=== PATIENT | male | born 1960 | race Caucasian/White ===

== ENCOUNTER → 2022-01-30 10:56 | Outpatient (BNVA) | payer OTHER, SELFPAY | PROVIDERS: Family Provider Family Medicine; PCP Family Medicine; Visit Provider Internal Medicine Cardiovascular Disease | DX: Z01.812 Encounter for preprocedural laboratory examination (principal); I25.10 Atherosclerotic heart disease of native coronary artery without angina pectoris; I38 Endocarditis, valve unspecified; I65.29 Occlusion and stenosis of unspecified carotid artery; F17.200 Nicotine dependence, unspecified, uncomplicated | CPT/HCPCS: 99204 ==

== ENCOUNTER → 2022-02-01 10:44 | Outpatient (BNVA) | payer OTHER, SELFPAY | PROVIDERS: Family Provider Family Medicine; PCP Family Medicine; Visit Provider Surgery | DX: K92.1 Melena (principal) | CPT/HCPCS: 87635 ==

== ENCOUNTER 2022-02-07 05:35 | Day surgery (SDC) | payer OTHER, SELFPAY ==
[2022-02-04 13:10] VITALS: BMI 15.7
[2022-02-07 06:03] VITALS: BP 122/88; PULSE 68; RESP 16; TEMP 36.1; O2SAT 100
[2022-02-07] MEDS: sodium chloride 0.9% 1,000 ML 30 ML IV (06:14)
--- NOTE | 2022-02-07 06:34 | W.PM.OPSUD ---
Surgery/Procedure H&P Update DATE OF PROCEDURE: February 07, 2022 DATE H&P PERFORMED: 01/14/22 CHANGES TO PREVIOUS DOCUMENTATION: none PREOP DIAGNOSIS: Occult blood positive in stool PRIMARY INDICATION FOR PROCEDURE: the same PLANNED PROCEDURE: Operation Date: 02/07/22 07:00 Proposed Procedures p Colonoscopy 40487/k92.1(Not Applicable) - Nicholas Almaguer MD
--- NOTE | 2022-02-07 06:42 | ANES.PREANE2 ---
Pre-Anesthetic Assessment Height/Weight: Height 2.01 m Weight 63.503 kg Temp Pulse Resp BP Pulse Ox 97 F L 68 16 122/88 100 02/07/22 06:03 02/07/22 06:03 02/07/22 06:03 02/07/22 06:03 02/07/22 06:03 Preop Diagnosis: Occult blood positive in stool Operation Date: 02/07/22 07:00 Proposed Procedures p Colonoscopy 51015/k92.1(Not Applicable) - Nicholas Almaguer MD Last intake: Intake Last Liquid Date 02/06/22 Last Liquid Time 23:30 Last Solid Date 02/05/22 Last Solid Time 21:00 Social Alcohol and Tobacco 3-4 cig per day pack(s) per day Airway Submandibular: within normal limits Cervical ROM: within normal limits Mallampati: Class III Dentition: false (upper plate) Pulmonary Chronic Obstructive Pulmonary Disease CV/HEM Coronary Artery Disease and Hypertension previous aneurysm repair, previous heart stents and CABG x4 in 2014 cleared by cardiology 01/29 for colonoscopy patient appears to have good fuctional capacity. None reported Hepatic None reported GI Gastroesophageal Reflux Disease Melena Metabolic Hyperlipidemia [facility] None reported Neuropsych None reported Anesthetic Plan ASA status: 3 Medications/Allergies Home Medications Medication Instructions Recorded Confirmed Last Taken Type allopurinol 100 mg tablet 300 mg PO DAILY 01/14/22 02/07/22 02/06/22 History amlodipine 10 mg tablet 10 mg PO DAILY 01/14/22 02/07/22 02/06/22 History aspirin 81 mg tablet,delayed 81 mg PO DAILY 01/14/22 02/04/22 02/03/22 History release (Adult Aspirin Regimen) carvedilol 25 mg tablet 25 mg PO BID 01/14/22 02/07/22 02/06/22 History clopidogrel 75 mg tablet 75 mg PO DAILY 01/14/22 02/07/22 02/02/22 History lisinopril 40 mg tablet 40 mg PO DAILY 01/14/22 02/07/22 02/06/22 History nitroglycerin 0.4 mg sublingual 0.4 mg SUBLINGUAL Q5M PRN 01/25/22 02/04/22 Unknown History tablet (Nitrostat) Allergies Allergy/AdvReac Type Severity Reaction Status Date / Time Bpgxyyf-UWI-YiQ Reductase Allergy Severe Unknown Verified 02/04/22 13:07 Inhibitor Current Medications Generic Name Dose Route Start Last Admin Trade Name Yuanq PRN Reason Stop Dose Admin Sodium Chloride 1,000 mls @ 30 mls/hr 02/07/22 05:45 02/07/22 06:14 Sodium Chloride 0.9% IV 02/08/22 05:44 30 mls/hr .Q24H DYLON Administration PFSH Anesthesia Medical History Abnormal liver function tests Aortic aneurysm CAD (coronary artery disease) Carotid stenosis GERD (gastroesophageal reflux disease) Gout Heart failure Heart valve disorder Hyperlipidemia Hypertension Statin intolerance Tobacco use disorder Vitamin D deficiency Surgical History History of bilateral hip replacements 2000, 2002 History of hip replacement History of inguinal hernia repair LEFT 1999 History of open heart surgery 2014 History of PTCA Hx of CABG x 4 vessels 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 Family History Brother CAD (coronary artery disease) unknown age of onset Sister CAD (coronary artery disease) unknown age of onset Diabetes Mother CAD (coronary artery disease) unknown age of onset Father Cancer Lung disease Family/Other Hypertension Grandmother Suicide Other Dementia Denies family history of Clotting disorder Chronic kidney disease (CKD) Anesthesia complication Bleeding disorder Stroke Social History Smoking and tobacco status: current some day smoker Alcohol intake: current Alcohol intake frequency: few times a week Alcohol type: beer Substance/Drug Use: never Lives independently: Yes Data Anesthesia Cardiac Studies: No Data to Display
[2022-02-07 07:17] VITALS: BP 106/74; PULSE 67; RESP 16; TEMP 36.5; O2SAT 100
[2022-02-07 07:28] VITALS: BP 99/60; PULSE 77; RESP 16; TEMP 36.2; O2SAT 97
== END 2022-02-07 09:08 | disposition home or self-care (01) ==
PROVIDERS: PCP Family Medicine; Visit Provider Surgery
PROC: 0DJD8ZZ Inspection of Lower Intestinal Tract, Via Natural or Artificial Opening Endoscopic (ICD-10-PCS; CPT 45378; principal; 2022-02-07 07:00)
DX: K92.1 Melena (principal); F17.210 Nicotine dependence, cigarettes, uncomplicated; K21.9 Gastro-esophageal reflux disease without esophagitis; I25.10 Atherosclerotic heart disease of native coronary artery without angina pectoris; Z95.1 Presence of aortocoronary bypass graft; Z95.5 Presence of coronary angioplasty implant and graft; E78.5 Hyperlipidemia, unspecified; I50.9 Heart failure, unspecified; I11.0 Hypertensive heart disease with heart failure; Z82.49 Family history of ischemic heart disease and other diseases of the circulatory system
CPT/HCPCS: 45378; J2704; J3490; J7030

== ENCOUNTER 2022-02-20 09:08 | Outpatient (CLI) | payer OTHER, SELFPAY ==
[2022-02-20] MEDS: iohexol 300 mg/mL 50 mL Btl PO (10:01)
--- NOTE | 2022-02-20 10:30 | CT_ITS ---
WS: [id number] CTA THORACIC AORTA WITH CONTRAST. HISTORY: Follow-up ascending aortic aneurysm repair. TECHNIQUE: CT imaging of the thorax is performed with and without contrast. After noncontrast imaging is performed, CT angiogram is performed during injection of Omnipaque 350; 95 mL IV.. Sagittal and c oronal reconstructions, sagittal and coronal MIP imaging is submitted. All CT scans at [facility] use at least one of these dose optimization techniques: automated exposure control; mA and/or kV adjustment per patient size (includes targeted exams where dose is matched to clinical indication); or iterative reconstruction. DLP: 1493.10 mGy.cm COMPARISON: None available. By history patient is status post ascending aortic aneurysm repair. Several surgical sutures are note d adjacent to the ascending thoracic aorta. Maximum transverse diameter of the ascending aorta is 4.0 cm. Aneurysm tapers normally through the ar ch. Descending aortic measurement at the level of the trachea is 2.5 cm. There is no periaortic hemat stephanie. No mediastinal hematoma. Scattered mild atherosclerotic plaque into the suprarenal aorta. Normal size pulmonary artery. There is a small amount of air in the pulmonary artery from the recent IV injection most likely. No filling defects in the pulmonary arteries of thrombus. Heart is normal s ize. Coronary artery calcifications are extensive. Near contiguous calcification noted in the [place] coronary arteries. Prior CABG. Mildly hyperexpanded lungs. Extensive paraseptal emphysema. No pulmonary mass or nodule. No adenopath y in the mediastinum or hilar regions. Mild stenosis involving the proximal LEFT subclavian artery. Very small hiatal hernia. Mild thickening of the gastroesophageal junction. Nonspecific and may be du e to underdistention. Mild hepatic steatosis. Blush-like area of enhancement within the central liver may be a small hepatic hemangioma. No adrenal mass. Visualized pancreas is negative. No osteoblastic or osteolytic bone disease. CT/CT angio chest [id number] IMPRESSION: 1. Very minimal aneurysmal dilatation of the ascending thoracic aorta with a m aximum diameter 4.0 cm. No prior studies for comparison are available. 2. Prior CABG with extensive [place] coronary artery calcified plaque. 3. Paraseptal emphysema. 4. Mild stenosis proximal LEFT subclavian artery.
--- NOTE | 2022-02-20 10:30 | CT_ITS ---
WS: [id number] CT ABDOMEN AND PELVIS WITH CONTRAST HISTORY: K62.5 - Hemorrhage of anus and rectum TECHNIQUE: Imaging performed of the abdomen and pelvis with IV contrast. Single phase imaging of the abdomen. Coronal and sagittal reformats are submitted. All CT scans at [facility] use at [address] one of these dose optimization techniques: automated exposure control; mA and/or kV adjustment per patient size (includes targeted exams where dose is matched to clinical indication); or iterative re construction. IV CONTRAST: Omnipaque 350; 95 mL IV. Oral contrast: Yes. DLP: 1493.10 mGy.cm COMPARISON: None available. Lower thorax: Lung bases are clear. Normal size heart. No pericardial effusion. Small hiatal hernia. Moderate thickening of the gastroesophageal junction. Liver/biliary system: Normal size liver. Very small low-attenuation nodule in the superior liver ce ures 4 mm. Too small to characterize. Normal enhancement of the portal vein. Gallbladder: Mildly contracted gallbladder. No adjacent inflammation. No bile duct dilatation. Pancreas: Normal size pancreas and pancreatic duct. No adjacent inflammation. Spleen: Normal size spleen. No mass or infarct. Adrenal glands: Normal. Right kidney: Normal size kidney. There are small nonobstructing calcifications which may be vascular calcifications. No ureteral dilatation. Left kidney: Normal size kidney. No obstruction or solid mass. Nonobstructing central calcifications. Aorta: Moderate atherosclerotic plaque throughout the aorta. Plaque at the proximal celiac axis. Less than 50% stenosis. There is additional soft plaque and calcified plaque involving the proximal SMA. There is at least 50% stenosis. Soft plaque at the origin of the LACHELLE. Heavy calcified plaque at the o rigin of the renal arteries. There is also a combination of soft plaque and calcified plaque. There m ay be significant stenosis. Lymphadenopathy: None. Free fluid: None. GI tract: Circumferential thickening at the GE junction. No small bowel obstruction. There is an intu ssusception noted involving the small bowel in the LEFT abdomen. No obstruction evident. By CT no cristo d point mass identified. There is diffuse fecal retention. There is an area of wall thickening and mu cosal thickening involving the cecum and ascending colon. No adjacent lymph nodes. Normal caliber chavo cending colon. The appendix is not definitely visualized. Abdominal wall: Fat containing umbilical hernia. Pelvis: Pelvis is obscured by artifact secondary to the bilateral hip prostheses. Urinary bladder is well distended. No ascites or adenopathy identified. Extensive calcifications continue into the iliac arteries bilaterally. Bones: Advanced degenerative disc disease at L5-S1. No osteoblastic or osteolytic bone disease. Bilat eral arthroplasties involving the hips. CT/CT abdomen pelvis w con* [id number] IMPRESSION: 1. Moderate circumferential mucosal thickening at the GE junction. More extens evelin than typically seen with gastritis. Consider endoscopy for further evaluati on to exclude neoplasm. 2. Areas of stenoses involving the renal arteries and the SMA need further wendy luation. Consider CT angiogram of the aorta with attention to the renal arterie s and SMA. Atherosclerotic plaque continues into the iliac arteries bilaterally . 3. Ileoileal intussusception in the LEFT abdomen with no obstruction. This may be transient. 4. Focal luminal narrowing with mucosal thickening involving the cecum and asc ending colon. May be inflammatory, no discrete mass identified. This area shoul d be further evaluated by colonoscopy if that has not already been performed.
[2022-02-20 11:13] LABS: Blood Urea Nitrogen 11 mg/dL (8-23); Glomerular Filtration Rate 61.1 mL/min (90-130)
[2022-02-20] MEDS: iohexol 350 mg/mL 100 mL Btl IV (11:13)
== END 2022-02-20 09:09 | disposition home or self-care (01) ==
LOC: RAD 09:10
PROVIDERS: Internal Medicine Cardiovascular Disease; PCP Family Medicine; Visit Provider Surgery
DX: Z01.812 Encounter for preprocedural laboratory examination (principal); K62.5 Hemorrhage of anus and rectum; Z95.1 Presence of aortocoronary bypass graft; J43.8 Other emphysema
CPT/HCPCS: 71275; 74177; 82565; 84520

== ENCOUNTER → 2022-02-21 13:45 | Outpatient (BNVA) | payer OTHER, SELFPAY | PROVIDERS: PCP Family Medicine; Visit Provider Surgery | DX: R10.32 Left lower quadrant pain (principal) ==

== ENCOUNTER → 2022-03-20 15:30 | Outpatient (BNVA) | payer OTHER, SELFPAY | PROVIDERS: PCP Family Medicine; Visit Provider Surgery | DX: Z09 Encounter for follow-up examination after completed treatment for conditions other than malignant neoplasm (principal); K21.9 Gastro-esophageal reflux disease without esophagitis; R19.5 Other fecal abnormalities; R93.3 Abnormal findings on diagnostic imaging of other parts of digestive tract; F17.210 Nicotine dependence, cigarettes, uncomplicated | CPT/HCPCS: 99213 ==

== ENCOUNTER 2022-03-29 05:59 | Day surgery (SDC) | payer OTHER, SELFPAY ==
[2022-03-27 13:10] VITALS: BMI 23.5
[2022-03-29 06:21] VITALS: BP 128/62; PULSE 64; RESP 18; TEMP 37; O2SAT 98
[2022-03-29] MEDS: sodium chloride 0.9% 1,000 ML 30 ML IV (06:33)
--- NOTE | 2022-03-29 06:33 | W.PM.OPSUD ---
Surgery/Procedure H&P Update DATE OF PROCEDURE: March 29, 2022 DATE H&P PERFORMED: 03/20/22 H&P UPDATE INFORMATION: I have reviewed H&P completed within last 30 days, I have examined patient prior to procedure and No changes to prior documentation PREOP DIAGNOSIS: Abnormal CT scan of the esophagus PRIMARY INDICATION FOR PROCEDURE: The same PLANNED PROCEDURE: Operation Date: 03/29/22 07:30 Proposed Procedures p EGD 95339/K21.9(Not Applicable) - Nicholas Almaguer MD
--- NOTE | 2022-03-29 06:49 | P.ANESUD_ITS ---
Pre-Anesthetic Update Pre-Anesthetic Assessment: Date of Surgery/Procedure: 03/29/22 Preop [place] gnosis: Abnormal CT scan of the esophagus Proposed Procedure: Operation Date: 03/29/22 07:30 Proposed Procedures p EGD 80959/K21.9(Not Applicable) - Nicholas Almaguer MD Last Intake: Intake Last Liquid Date 03/28/22 Last Liquid Time 21:00 Last Solid Date 03/28/22 Last Solid Time 19:00 Vitals: Temperature 98.6 F 03/29/22 06:21 Pulse Rate 64 03/29/22 06:21 Respiratory Rate 18 03/29/22 06:21 Blood Pressure 128/62 03/29/22 06:21 Blood Pressure Macrina n 84 03/29/22 06:21 Pulse Oximetry 98 03/29/22 06:21 Oxygen Delivery Me thod 03/29/22 06:21 Cardiac Studies: No Data to Display Anesthesia Procedures Other Information: patient seen for colonosocopy 02/05 denies any changes in health since then.
[2022-03-29 07:40] VITALS: BP 105/53; PULSE 62; RESP 18; TEMP 36.5; O2SAT 97
[2022-03-29 07:50] VITALS: BP 115/78; PULSE 68; RESP 18; O2SAT 95
--- NOTE | 2022-03-29 13:16 | ANE.PACU2 ---
Inpatient post-anesthesia follow up: Airway intact: Yes Vital signs: Temperature 97.7 F Pulse Rate 68 Respiratory Rate 18 Blood Pressure 115/78 Pulse Oximetry 95 Oxygen Delivery Me thod Room Air Oxygen Flow Rate 2 Fraction of Inspir ed Oxygen Hydration adequate: Yes Nausea and vomiting: No Pain level: 1 Mental status: Baseline
== END 2022-03-29 08:10 | disposition home or self-care (01) ==
PROVIDERS: PCP Family Medicine; Visit Provider Surgery
PROC: 0DJ08ZZ Inspection of Upper Intestinal Tract, Via Natural or Artificial Opening Endoscopic (ICD-10-PCS; CPT 43235; principal; 2022-03-29 07:30)
DX: R93.3 Abnormal findings on diagnostic imaging of other parts of digestive tract (principal); K44.9 Diaphragmatic hernia without obstruction or gangrene; K29.70 Gastritis, unspecified, without bleeding; Z79.82 Long term (current) use of aspirin; I25.10 Atherosclerotic heart disease of native coronary artery without angina pectoris; I11.0 Hypertensive heart disease with heart failure; I50.9 Heart failure, unspecified; E55.9 Vitamin D deficiency, unspecified; E78.5 Hyperlipidemia, unspecified; F17.200 Nicotine dependence, unspecified, uncomplicated
CPT/HCPCS: 43235; J7030

== ENCOUNTER → 2022-04-08 09:52 | Outpatient (BNVA) | payer OTHER, SELFPAY | PROVIDERS: PCP Family Medicine; Visit Provider Internal Medicine Cardiovascular Disease | DX: Z53.9 Procedure and treatment not carried out, unspecified reason (principal) ==

== ENCOUNTER 2022-04-26 09:47 | Outpatient (CLI) | payer OTHER, SELFPAY ==
--- NOTE | 2022-04-26 10:03 | FL_ITS ---
WS: [id number] Exam: FL barium enema w air* [id number] Date/Time of Exam: 04/26/2022 10:09 AM Reason For Exam: OCCULT BLOOD IN STOOLS Preliminary abdominal survey shows bilateral total hip replacements. The colon fills to the cecum. Barium could not be refluxed into the terminal ileum. There was no evid ence of colonic mass or constricting lesion. There is some retained particulate stool debris in the c olon which would preclude detection of a small polyp or mucosal lesion. This is mainly in the transve rse and left colon. The haustral pattern is well maintained. The colon is not displaced. A single div erticulum is seen in the lower descending colon. FL/FL barium enema w air* [id number] IMPRESSION: 1. No sign of the colonic mass or constricting lesion. 2. Small amount of retained particulate fecal debris is noted in the left colon and transverse colon which would preclude detection of a small polyp or mucosa l lesion. Single left colon diverticulum.
== END 2022-04-26 09:48 | disposition home or self-care (01) ==
PROVIDERS: PCP Family Medicine; Visit Provider Surgery
DX: R19.5 Other fecal abnormalities (principal); K57.30 Diverticulosis of large intestine without perforation or abscess without bleeding
CPT/HCPCS: 74280

== ENCOUNTER 2022-05-01 10:09 | Outpatient (CLI) | payer OTHER, SELFPAY ==
--- NOTE | 2022-05-01 10:30 | CT_ITS ---
WS: [id number] CT ANGIOGRAPHY abdomen and pelvis. HISTORY: K62.5 - Hemorrhage of anus and rectum TECHNIQUE: CT angiogram is performed during IV injection. Reformation images reviewed. All CT scans a [employer] use at least one of these dose optimization techniques: automated exposure contro l; mA and/or kV adjustment per patient size (includes targeted exams where dose is matched to clinica l indication); or iterative reconstruction. CONTRAST: Omnipaque 350; 95 mL IV. DLP: 819.48 mGy.cm COMPARISON: 02/20/2022 No pulmonary nodule at the lung bases. Heart size is mildly enlarged. Small hiatal hernia. Liver and spleen and pancreas are normal. No adrenal mass. No inflammation adjacent to the gallbladde r. Mild perinephric stranding of each kidney. No obstruction. No ascites or adenopathy. Abdominal aorta: Mild diffuse atherosclerotic plaque throughout the aorta. Calcified plaque and intim al thickening. No aneurysm. Mild scattered plaque involving the proximal celiac axis. No obstruction. More focal plaque in the proximal SMA. There is intimal thickening and plaque causing a mild proxima l stenosis. Moderate calcification of the origin of the renal arteries. Accessory renal artery on the LEFT has at least moderate stenosis at the origin. LACHELLE is still patent. Calcification continues into the common iliac arteries. 50-60% stenosis LEFT mid to distal common iliac artery. Moderate atherosc lerotic plaque continues into the internal and external iliac arteries. Focal areas of moderate steno sis bilateral superficial femoral arteries and deep profunda. Nondistended stomach. No wall thickening identified today. No small bowel obstruction. The appendix i s normal size and contains calcification. No focal areas of abnormal enhancement noted within the col on. No active extravasation. There is mild thickening involving the rectal soft tissues. Urinary blad mimi is well distended and contains artifact from the patient's bilateral hip prostheses. Bilateral hip prostheses. Moderate degenerative disc disease L5-S1. CT/CT angio abdomen pelvis [id number] IMPRESSION: 1. Mild circumferential rectal wall thickening. Recommend colonoscopy. 2. No enhancing lesions or active extravasation. 3. Atherosclerotic plaque throughout the abdominal aorta with no aneurysm. 4. Multifocal areas of jxhw-on-slttljjd stenosis involving the celiac axis, SM A, renal arteries, iliac arteries, bilateral superficial femoral and proximal p rofunda.
[2022-05-01 10:52] LABS: Blood Urea Nitrogen 11 mg/dL (8-23); Glomerular Filtration Rate 75.2 mL/min (90-130)
[2022-05-01] MEDS: iohexol 350 mg/mL 100 mL Btl IV (10:52)
== END 2022-05-01 10:10 | disposition home or self-care (01) ==
LOC: RAD 10:09
PROVIDERS: PCP Family Medicine; Visit Provider Surgery
DX: K62.5 Hemorrhage of anus and rectum (principal); I70.1 Atherosclerosis of renal artery
CPT/HCPCS: 74174; 82565; 84520; 99212; 99213

== ENCOUNTER 2024-05-31 16:30 | Emergency (ER) | payer OTHER, MEDICARE, SELFPAY ==
[2024-05-31 16:35] VITALS: BP 147/68; PULSE 64; RESP 18; TEMP 36.7; O2SAT 96; BMI 25.0
--- NOTE | 2024-05-31 16:41 | ECG_ITS ---
[facility] Test Date: 2024-05-31 Pat Name: Syed Maria Department: Room: Gender: Male Sports Journalist: : 1960 Requested By: John Hines Order Number: [id number] Conor MD: Darrel Doty M.D. Measurements Intervals [place] Rate: 58 P: -52 DC: 109 QRS: 55 QRSD: 138 T: 54 QT: 407 QTc: 402 Interpretive Statements SINUS BRADYCARDIA WITH SHORT DC INTERVAL RIGHT BUNDLE BRANCH BLOCK [120+ ms QRS DURATION, UPRIGHT V1, 40+ ms S IN I/aVL/V4/V5/V6] INTERPRETATION BASED ON A DEFAULT AGE OF 40 YEARS No previous ECG available for comparison Electronically Signed On 06-01-2024 21:34:14 CDT by Darrel Doty M.D. [id number] f
[2024-05-31 17:33] VITALS: BP 146/64; PULSE 59; RESP 16; O2SAT 98
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
[2024-05-31 18:00] VITALS: PULSE 64; O2SAT 99
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
[2024-05-31 19:03] VITALS: BP 129/62; PULSE 66; RESP 16; O2SAT 97
== END 2024-05-31 19:04 | disposition home or self-care (01) ==
PROVIDERS: Emergency Provider Physician Assistant; PCP Family Medicine
DX: S13.9XXA Sprain of joints and ligaments of unspecified parts of neck, initial encounter (principal); S61.412A Laceration without foreign body of left hand, initial encounter; S20.211A Contusion of right front wall of thorax, initial encounter; Z79.02 Long term (current) use of antithrombotics/antiplatelets; Z79.82 Long term (current) use of aspirin; Z72.0 Tobacco use; E78.5 Hyperlipidemia, unspecified; I10 Essential (primary) hypertension; I25.10 Atherosclerotic heart disease of native coronary artery without angina pectoris; Z95.1 Presence of aortocoronary bypass graft; V89.2XXA Person injured in unspecified motor-vehicle accident, traffic, initial encounter
CPT/HCPCS: 70450; 71250; 72125; 74176; 93005; 99284

== ENCOUNTER 2024-12-18 09:52 | Inpatient (IN) | payer MEDICARE, SELFPAY ==
[2024-12-18] VITALS (28 sets, daily range): BP systolic 99–143; BP diastolic 29–68; PULSE 70–83; RESP 16–20; TEMP 36.4; O2SAT 90–97
--- NOTE | 2024-12-18 09:59 | XRR_ITS ---
PROCEDURE INFORMATION: Exam: XR Right Shoulder Exam date and time: 12/18/2024 10:05 AM Age: 64 years old Clinical indication: Pain; Shoulder; Right; Additional info: Shoulder pain TECHNIQUE: Imaging protocol: Radiologic exam of the right shoulder. Views: 2 or more views. COMPARISON: [place] [id number] 05/31/2024 5:56 PM FINDINGS: Bones/joints: There is a fracture noted of the humeral head and neck. Internal external rotation views are the same. Glenohumeral alignment is intact. Minimal AC joint spurring. Soft tissues: Normal. XR/XR shoulder RT min 2V* [id number] IMPRESSION: Humeral head fracture.
--- NOTE | 2024-12-18 09:59 | CTR_ITS ---
PROCEDURE INFORMATION: Exam: CT Head Without Contrast Exam date and time: 12/18/2024 10:03 AM Age: 64 years old Clinical indication: Stroke-like symptoms; Altered mental status/memory loss; Additional info: Possible stroke TECHNIQUE: Imaging protocol: Computed tomography of the head without contrast. Radiation optimization: All CT scans at this facility use at least one of these dose optimization techniques: automated exposure control; mA and/or kV adjustment per patient size (includes targeted exams where dose is matched to clinical indication); or iterative reconstruction. Other technique: STROKE PROTOCOL was implemented. 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 No intracranial hemorrhage. No midline shift. Stable atrophy since the previous examination. Cerebral ventricles: No ventriculomegaly. Paranasal sinuses: Visualized sinuses are unremarkable. No fluid levels. Mastoid air cells: Visualized mastoid air cells are well aerated. Bones: Unremarkable. No acute fracture. Soft tissues: Unremarkable. CT/CT head wo con* [id number] IMPRESSION: No acute abnormality. 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 ASSESSMENT: ASPECTS ([place] Stroke Program Early CT Score) is 10.
--- NOTE | 2024-12-18 10:00 | ECG_ITS ---
[facility] Pat Name: Syed Maria Department: Room: Gender: Male Department Of Sociology Chair: : [id number] Requested By: Jessie Bailey Order Number: [id number] Perdomo MD: Wilfrid Arellano M.D. Measurements Intervals [place] Rate: 63 P: 0 NH: 0 QRS: 71 QRSD: 145 T: 70 QT: 439 QTc: 450 Interpretive Statements SINUS RHYTHM WITH SINUS ARRHYTHMIA RIGHT BUNDLE BRANCH BLOCK [120+ ms QRS DURATION, UPRIGHT V1, 40+ ms S IN I/aVL/V4/V5/V6] Compared to ECG 05/31/2024 16:41:20 Sinus bradycardia no longer present Short NH interval no longer present Electronically Signed On 12-18-2024 13:15:56 [employer] SALES REPRESENTATIVE by Wilfrid Arellano M.D. [email or web address]
--- NOTE | 2024-12-18 10:00 | XRR_ITS ---
PROCEDURE INFORMATION: Exam: XR Chest Exam date and time: 12/18/2024 10:07 AM Age: 64 years old Clinical indication: Other: Weakness TECHNIQUE: Imaging protocol: Radiologic exam of the chest. Views: 1 view. COMPARISON: [place] [id number] 05/31/2024 5:56 PM FINDINGS: Lungs: Unremarkable. No consolidation. Pleural spaces: Unremarkable. No pleural effusion. No pneumothorax. Heart/Mediastinum: Unremarkable. No cardiomegaly. Bones/joints: Sternal sutures. Fracture of unknown age involving the right humeral head. This is confirmed by shoulder x-ray performed today. XR/XR chest 1V portable [id number] IMPRESSION: 1. The lungs are clear. 2. There is a shoulder fracture. Is there history of trauma?
--- NOTE | 2024-12-18 10:10 | ED_ITS ---
HPI - Weakness 2 General: Chief complaint: Weakness Stated complaint: right side weakness Time Seen by Provider: 12/18/24 09:53 History of Present Illness: 64-year-old man with a history of epps ry artery disease, gout, GERD, hypertension, tobacco use, hyperlipidemia and carotid stenosis who presents to the emergency room with some confusion and possible right sided weakness. He has a bruise on his right shoulder and pain with movement. He says he does not remember having a fall. He has some difficulty raising his right leg but that seems to be from pain more than from weakness. No facial droop. No slurred speech. He does seem slightly confused at times but mainly answers questions appropriately. He knows his birthday. He tells me that someone from his work called the ambulance. Possibly because he did not show up. Review of Systems 2 Narrative: Constitutional symptoms: Negative except as documented in HPI. Skin symptoms: Negative except as documented in HPI. Eye symptoms: Negative except as documented in HPI. ENMT symptoms: Negative except as documented in HPI. Respiratory symptoms: Negative except as documented in HPI. Cardiovascular symptoms: Negative except as documented in HPI. Gastrointestinal symptoms: Negative except as documented in HPI. Genitourinary symptoms: Negative except as documented in HPI. Musculoskeletal symptoms: Negative except as documented in HPI. Neurologic symptoms: Negative except as documented in HPI. Psychiatric symptoms: Negative except as documented in HPI. Endocrine symptoms: Negative except as documented in HPI. 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 History of PTCA Family History Brother CAD (coronary artery disease) unknown age of onset Sister CAD (coronary artery disease) unknown age of onset Diabetes Mother CAD (coronary artery disease) unknown age of onset Father Cancer Lung disease Family/Other Hypertension Grandmother Suicide Other Dementia Denies family history of Clotting disorder Chronic kidney disease (CKD) Anesthesia complication Bleeding disorder Stroke Social History Smoking and tobacco/nicotine status: current every day tobacco/nicotine user Alcohol intake: current Alcohol intake frequency: few times a week Alcohol type: beer Substance/Drug Use: never Lives independently: Yes Physical Exam 2 Narrative: EXAM NARRATIVE: General: Alert, no acute distress. Skin: Warm, dry. Head: Normocephalic, atraumatic. Neck: Supple, trachea midline. Eye: Extraocular movements are intact. Ears, nose, mouth and throat: mucosa moist. Cardiovascular: Regular, Normal peripheral perfusion. Respiratory: Lungs are clear to auscultation, respirations are non-labored, breath sounds are equal, Symmetrical chest wall expansion. Gastrointestinal: Soft, Nontender, Non distended Musculoskeletal: Normal ROM, no deformity. Neurological: No obvious focal deficits. His right leg does seem a little weaker than the left but it seems more secondary to pain. Right arm he will not move and he has a large bruise over the shoulder. Possible deformity.. Psychiatric: Cooperative, odd affect Course 2 Vital Signs: Vital signs: Vital Signs Temperature 97.6 F 12/18/24 09:55 Pulse Rate 75 12/18/24 10:22 Respiratory Rate 18 12/18/24 11:29 Blood Pressure 143/52 12/18/24 10:22 Pulse Oximetry 95 12/18/24 10:22 Oxygen Delivery Me thod Room Air 12/18/24 10:22 MDM - Weakness Medical Decision Making Medical decision making: Differential diagnosis for patient with focal neurologic deficit(s) includes but not limited to and based on the above HPI, review of systems and physical exam: ischemic stroke, hemorrhagic stroke and embolic stroke secondary to atrial fibrillation), TIA, Neri's palsey, metabolic encephalopathy with previous stroke. Orders placed to evaluate differential diagnosis based on the above differential, HPI and physical exam CT head: Small lacunar infarcts. No acute intracranial process. no intracranial hemorrhage, no evidence of infarct. no evidence of acute fracture.This was reviewed and interpreted by myself the ER physician. Chest x-ray: Right proximal humerus fracture. No acute process. No infiltrate. No pneumothorax. This was reviewed and interpreted by myself the emergency room physician. I also reviewed the radiology report. X-ray of the right shoulder: Proximal right humerus fracture. This was reviewed and interpreted by myself the emergency room physician. I also reviewed the radiology report. X-ray of the right hip and pelvis: Bilateral hip prostheses. No obvious pelvic fractures. This was reviewed and interpreted by myself the emergency room physician. I also reviewed the radiology report. Lab Review: Laboratory results were reviewed and interpreted by myself the emergency room physician. Mild leukocytosis. Hemoglobin is 10.6. No comparison labs. No renal failure. However he does have a very low sodium at 123. This might very well explain his symptoms at this time. I reviewed the patient's medical record. Reexamination: Patient still remains slightly confused and odd affect. He still says he thinks he is okay. Friend who is in the room says he is not acting like himself at all. We discussed that this likely is due to his low sodium. I asked him about his alcohol use. He says he drinks beer. He says less than a 12 pack a day but cannot tell me how much exactly. This may be the cause of his hyponatremia. Also he is on lisinopril but no other diuretics. Consultation: I spoke with Dr. Johnson who is on-call for orthopedics. He recommends sling and outpatient follow-up. This would likely be in a couple of weeks. Consultation: I spoke with Dr. Motley who is on-call for the hospitalist service who agrees to admission. Assessment and plan: Hyponatremia Encephalopathy Fall Shoulder fracture ?Normal saline bolus, morphine and Zofran in the emergency room. Sling placed. -I discussed the patient with the hospitalist on-call who is admitting the patient. - Discussed findings and plan with patient. Answered any questions. - All laboratory values were reviewed and interpreted personally by myself, the ER physician - All imaging was reviewed and interpreted personally by myself, the ER physician. - Evaluation and treatment of this problem were appropriate in the emergency setting Lab Data 12/18/24 10:20 12/18/24 10:[address] 12/18/24 09:59 IMPRESSION: No acute abnormality. 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 ASSESSMENT: ASPECTS (Kimi Stroke Program Early CT Score) is 10. ADDENDUM: 12/18/24 1018 THIS REPORT CONTAINS FINDINGS THAT MAY BE CRITICAL TO PATIENT CARE. The findings were verbally communicated by me to HALI PAUL at 10:16 AM DISTRICT LOSS PREVENTION MANAGER on 12/18/2024. The findings were acknowledged and understood. Shoulder X-Ray 12/18/24 09:59 IMPRESSION: Humeral head fracture. Chest X-Ray 12/18/24 10:00 IMPRESSION: 1. The lungs are clear. 2. There is a shoulder fracture. Is there history of trauma? Hip/Pelvis X-Ray 12/18/24 10:18 IMPRESSION: No acute findings. Pelvis X-Ray 12/18/24 11:33 IMPRESSION: Single views of the hips demonstrate bilateral hip replacements in good alignment. Laboratory Results WBC 13.15 10^3/uL (3.29-11.43) H 12/18/24 10:20 RBC 3.10 10^6/uL (3.85-5.65) L 12/18/24 10:20 Hgb 10.60 g/dL (11.27-16.99) L 12/18/24 10:20 Hct 30.2 % (37-53) L 12/18/24 10:20 MCV 97.4 fl (82-101) 12/18/24 10:20 MCH 34.2 pg (27-33) H 12/18/24 10:20 MCHC 35.1 g/dL (30-55) 12/18/24 10:20 RDW 12.2 % (12.1-15.1) 12/18/24 10:20 Plt Count 92 10^3/cmm (157-399) L 12/18/24 10:20 MPV 10.5 fL (7.4-10.4) H 12/18/24 10:20 Neut % (Auto) 88.3 % 12/18/24 10:20 Lymph % (Auto) 5.4 % 12/18/24 10:20 Whitman % (Auto) 4.2 % 12/18/24 10:20 Eos % (Auto) 0.2 % 12/18/24 10:20 Baso % (Auto) 0.2 % 12/18/24 10:20 Neut # (Auto) 11.62 10^3/uL (1.8-7.7) H 12/18/24 10:20 Lymph # (Auto) 0.7 10^3/uL (0.8-4.8) L 12/18/24 10:20 Whitman # (Auto) 0.6 10^3/uL (0.2-0.9) 12/18/24 10:20 Eos # (Auto) 0.0 10^3/uL (0.0-0.8) 12/18/24 10:20 Baso # (Auto) 0.0 10^3/uL (0.0-0.1) 12/18/24 10:20 Nucleated RBC % (auto) 0 % 12/18/24 10:20 Nucleated RBCs # 0.0 /100WBC 12/18/24 10:20 Sodium 123 mmol/L (136-145) L 12/18/24 10:20 Potassium 3.4 mmol/L (3.5-5.1) L 12/18/24 10:20 Chloride 89 mmol/L (98-107) L 12/18/24 10:20 Carbon Dioxide 18 mmol/L (22-29) L 12/18/24 10:20 Anion Gap 19.4 (5-19) H 12/18/24 10:20 BUN 15 mg/dL (8-23) 12/18/24 10:20 Creatinine 1.1 mg/dL (0.7-1.2) 12/18/24 10:20 GFR Calculation 67.0 mL/min (90-130) L 12/18/24 10:20 Glucose 137 mg/dL (65-115) H 12/18/24 10:20 POC Glucose 154 mg/dL (70-110) H 12/18/24 10:13 Calculated Osmolality 259 mOsm/kg (285-295) L 12/18/24 10:20 Lactic Acid 1.2 mmol/L (0.5-2.2) 12/18/24 10:20 Calcium 8.9 mg/dL (8.5-10.5) 12/18/24 10:20 Total Bilirubin 0.4 mg/dL (0.15-1.2) 12/18/24 10:20 AST 41 U/L (0-40) H 12/18/24 10:20 ALT 18 U/L (0-41) 12/18/24 10:20 Alkaline Phosphatase 83 U/L (40-130) 12/18/24 10:20 Troponin T Baseline 17 ng/L (0-15) H 12/18/24 10:20 C-Reactive Protein 5.1 mg/L (0.0-4.9) H 12/18/24 10:20 Total Protein 7.2 g/dL (6.6-8.7) 12/18/24 10:20 Albumin 4.0 g/dL (3.5-5.2) 12/18/24 10:20 Globulin 3.2 g/dL (1.3-4.6) 12/18/24 10:20 Ethyl Alcohol < 10 mg/dL (0-10) 12/18/24 10:20 All radiology interpretation(s) finalized by discharge Discharge Plan Discharge Patient Disposition: Admitted As Inpatient Clinical Impression: Acute hyponatremia, Fall, Acute metabolic encephalopathy, Proximal humerus fracture Condition: Stable Coding Level of Care Code 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 [employer] Home Medications Medication Instructions Recorded Confirmed amlodipine 10 mg tablet 10 mg PO DAILY 01/14/22 05/04/22 aspirin 81 mg tablet,delayed 81 mg PO DAILY 01/14/22 05/04/22 release (Adult Aspirin Regimen) carvedilol 25 mg tablet 25 mg PO BID 01/14/22 05/04/22 clopidogrel 75 mg tablet 75 mg PO DAILY 01/14/22 05/04/22 lisinopril 40 mg tablet 40 mg PO DAILY 01/14/22 05/04/22 nitroglycerin 0.4 mg sublingual 0.4 mg sublingual Q5M PRN Chest 01/25/22 05/04/22 tablet (Nitrostat) Pain allopurinol 300 mg tablet 300 mg PO DAILY 03/27/22 05/04/22 multivitamin 1 tab PO DAILY 03/27/22 05/04/22 Previous Rx's Medication Instructions Recorded pantoprazole 40 mg tablet,delayed 40 mg PO DAILY 30 days #30 tabs 03/29/22 release (Protonix) Allergies Allergy/AdvReac Type Severity Reaction Status Date / Time [id number] Reductase Allergy Severe Unknown Verified 05/31/24 16:40 Inhibitor allopurinol Allergy ALGY-Rash Verified 05/31/24 16:41
--- NOTE | 2024-12-18 10:18 | XRR_ITS ---
PROCEDURE INFORMATION: Exam: XR Right Hip Exam date and time: 12/18/2024 10:37 AM Age: 64 years old Clinical indication: Injury or trauma; Fall; Blunt trauma (contusions or hematomas); Right; Prior surgery; Surgery date: 6+ months; Surgery type: Total hip replacement; Additional info: Hip pain TECHNIQUE: Imaging protocol: Radiologic exam of the right hip. Views: 1 view hip with pelvis when performed. COMPARISON: [place] [id number] 05/31/2024 5:56 PM FINDINGS: Bones/joints: Total hip replacement in good alignment. Soft tissues: Unremarkable. Vasculature: Vascular calcifications. XR/XR hip RT 2-3V wo/w pel* [id number] IMPRESSION: No acute findings.
[2024-12-18 10:27] LABS: Glucose Point of Care 154 mg/dL (70-110)
[2024-12-18 11:06] LABS: Basophils % 0.2 %; Eosinophils % 0.2 %; Hematocrit 30.2 % (37-53); Lymphocytes # 0.7 10^3/uL (0.8-4.8); Lymphocytes % 5.4 %; Mean Corpuscular HGB Conc 35.1 g/dL (30-55); Mean Corpuscular Hemoglobin 34.2 pg (27-33); Mean Corpuscular Volume 97.4 fl (82-101); Mean Platelet Volume 10.5 fL (7.4-10.4); Monocytes # 0.6 10^3/uL (0.2-0.9); Monocytes % 4.2 %; Neutrophils # 11.62 10^3/uL (1.8-7.7); Neutrophils % 88.3 %; Nucleated Red Blood Cells % 0 %; Platelet Count 92 10^3/cmm (157-399); Red Cell Distribution Width 12.2 % (12.1-15.1); White Blood Count 13.15 10^3/uL (3.29-11.43)
[2024-12-18 11:20] LABS: Troponin(5th) Baseline 17 ng/L (0-15)
[2024-12-18 11:23] LABS: Lactic Sepsis W/Reflex 1.2 mmol/L (0.5-2.2)
[2024-12-18] MEDS: HYDROmorphone 1 mg/mL INJ 1 mL IVP ×2 (11:29→15:34)
[2024-12-18] MEDS: ondansetron 2 mg/ML SDV 2 mL 4 MG IVP (11:29)
--- NOTE | 2024-12-18 11:33 | XRR_ITS ---
PROCEDURE INFORMATION: Exam: XR Pelvis Exam date and time: 12/18/2024 11:34 AM Age: 64 years old Clinical indication: Hip pain; Right hip; Prior surgery; Surgery date: 6+ months; Surgery type: Bilateral hips; Additional info: RT hip pain; HX RT hip arthroplasty TECHNIQUE: Imaging protocol: Radiologic exam of the pelvis. Views: 1 or 2 view. COMPARISON: CR (PELVIS, ) 12/18/2024 10:37 AM FINDINGS: Bones/joints: Bilateral hip replacements are in good alignment. No acute fracture. Soft tissues: Unremarkable. Vasculature: Extensive vascular calcifications. Other findings: Both views are AP views without any frog-leg lateral view. XR/XR pelvis 1-2V* [id number] IMPRESSION: Single views of the hips demonstrate bilateral hip replacements in good alignment.
--- NOTE | 2024-12-18 12:00 | ECG_ITS ---
[facility]: 2024[facility]12[facility]18 Pat Name: Syed Maria Department: Room: Gender: Male Bottom Buffer: : 1960 Requested By: Jessie Bailey Order Number: [id number] Perdomo MD: Wilfrid Arellano M.D. Measurements Intervals [place] Rate: 71 P: -72 [place]: 133 QRS: 58 QRSD: 141 T: 56 QT: 416 QTc: 452 Interpretive Statements JUNCTIONAL RHYTHM RIGHT BUNDLE BRANCH BLOCK [120+ ms QRS DURATION, UPRIGHT V1, 40+ ms S IN I/aVL/V4/V5/V6] Compared to ECG 12/18/2024 10:18:54 Junctional rhythm now present Atrial fibrillation no longer present Electronically Signed On 12-18-2024 13:28:13 SAS ANALYST by Wilfrid Arellano M.D. [email or web address]
[2024-12-18 12:08] LABS: Alanine Aminotransferase 18 U/L (0-41); Alcohol Level < 10 mg/dL (0-10); Alkaline Phosphatase 83 U/L (40-130); Anion Gap 19.4 (5-19); Aspartate Amino Transferase 41 U/L (0-40); Blood Urea Nitrogen 15 mg/dL (8-23); C Reactive Protein 5.1 mg/L (0.0-4.9); Calcium 8.9 mg/dL (8.5-10.5); Carbon Dioxide 18 mmol/L (22-29); Chloride 89 mmol/L (98-107); Creatinine Clr Calc Pharmacy 62.8907; Globulin 3.2 g/dL (1.3-4.6); Glucose 137 mg/dL (65-115); Osmolality Calculated 259 mOsm/kg (285-295); Potassium 3.4 mmol/L (3.5-5.1); Sodium 123 mmol/L (136-145); Total Bilirubin 0.4 mg/dL (0.15-1.2); Total Protein 7.2 g/dL (6.6-8.7)
[2024-12-18 12:36] LABS: Covid PCR NEGATIVE (Negative); Influenza A NEGATIVE (Negative); Influenza B NEGATIVE (Negative); Respiratory Syncytial Virus Ce NEGATIVE (Negative)
--- NOTE | 2024-12-18 12:48 | PC.PHAR ---
[facility] . [facility] haven't received nything back . Patient states he takes some of the Medications on his list but some he seemed uncertain .
[2024-12-18] MEDS: sodium chloride 0.9% 1,000 ML 999 ML IV (13:36)
--- NOTE | 2024-12-18 13:39 | CTR_ITS ---
PROCEDURE INFORMATION: Exam: CTA Head With Contrast, Arteriography Exam date and time: 12/18/2024 1:51 PM Age: 64 years old Clinical indication: Weakness; Additional info: AMS, right sided weakness TECHNIQUE: Imaging protocol: Computed tomographic angiography of the head with contrast. Exam focused on the arteries. 3D rendering (Not supervised by radiologist): MIP and/or 3D reconstructed images were created by the technologist. Radiation optimization: All CT scans at this facility use at least one of these dose optimization techniques: automated exposure control; mA and/or kV adjustment per patient size (includes targeted exams where dose is matched to clinical indication); or iterative reconstruction. Contrast material: OMNI 350; Contrast volume: 100 ml; Contrast route: INTRAVENOUS (IV); COMPARISON: CT head wo con* [id number] 12/18/2024 10:03 AM RADIATION DOSE METRICS: Total DLP (mGy-cm): 448.96 FINDINGS: ANTERIOR CIRCULATION: Right internal carotid artery: Moderate stenosis of the right distal internal carotid artery within the cavernous sinus. Right middle cerebral artery: No occlusion or significant stenosis. No aneurysm. Right anterior cerebral artery: No occlusion or significant stenosis. No aneurysm. Left internal carotid artery: Moderate stenosis of the left distal internal carotid artery within the cavernous sinus. Left middle cerebral artery: No occlusion or significant stenosis. No aneurysm. Left anterior cerebral artery: No occlusion or significant stenosis. No aneurysm. POSTERIOR CIRCULATION: Right vertebral artery: Severe atherosclerotic disease of the reconstituted distal right vertebral artery. Left vertebral artery: No occlusion or significant stenosis. No aneurysm. Basilar artery: No occlusion or significant stenosis. No aneurysm. Right posterior cerebral artery: No occlusion or significant stenosis. No aneurysm. Left posterior cerebral artery: No occlusion or significant stenosis. No aneurysm. Brain: Please see the head CT. No abnormal enhancement. Stable old right occipital infarct. Cerebral ventricles: No ventriculomegaly. Bones/joints: Unremarkable. No acute fracture. Soft tissues: Unremarkable. PROCEDURE INFORMATION: Exam: CTA Neck With Contrast Exam date and time: 12/18/2024 1:51 PM Age: 64 years old Clinical indication: Weakness; Additional info: AMS, right sided weakness TECHNIQUE: Imaging protocol: Computed tomographic angiography of the neck with contrast. Exam focused on the cervical segments of the vasculature. 3D rendering (Not supervised by radiologist): MIP and/or 3D reconstructed images were created by the technologist. Radiation optimization: All CT scans at this facility use at least one of these dose optimization techniques: automated exposure control; mA and/or kV adjustment per patient size (includes targeted exams where dose is matched to clinical indication); or iterative reconstruction. Contrast material: OMNI 350; Contrast volume: 100 ml; Contrast route: INTRAVENOUS (IV); COMPARISON: CT cervical spin wo con* [id number] 05/31/2024 5:51 PM RADIATION DOSE METRICS: Total DLP (mGy-cm): 448.96 FINDINGS: Right common carotid artery: No stenosis. No dissection or occlusion. Right internal carotid artery: There is a right distal internal carotid artery patent stent extending into the proximal internal carotid artery. While the stent is patent there is an area of 50-60% narrowing. Right external carotid artery: Mild stenosis involving the origin of the right external carotid artery. Left common carotid artery: No stenosis. No dissection or occlusion. Left internal carotid artery: 30-50% stenosis proximal left internal carotid artery. Moderate stenosis origin of the proximal left internal carotid artery. Left external carotid artery: No occlusion or stenosis of the origin. Right vertebral artery: Occluded proximal right vertebral artery with minimal reconstruction at the level of C1/2 via collaterals. Left vertebral artery: Severe stenosis proximal left vertebral artery. Left subclavian artery: 30-50% stenosis proximal left subclavian artery. Other arteries: 20-30% stenosis proximal right innominate artery. Soft tissues: Normal. No significant soft tissue swelling. Bones/joints: Sternal sutures. Lungs: Bullous disease in the apices moderate to severe. CT/CT angio headneck* [id number] IMPRESSION: 1. Moderate distal internal carotid artery stenoses within the cavernous sinus. 2. No evidence of large vessel occlusion. IMPRESSION: 1. Right distal internal carotid artery patent stent extending into the proximal internal carotid artery. 50-60% moderate stenosis involving the stent. 2. Occluded right vertebral artery with minimal reconstitution at its distal aspect. 3. Severe stenosis proximal left vertebral artery. 4. Moderate stenosis proximal left internal carotid artery. 5. Moderate to emphysematous disease REFERENCES: NASCET CRITERIA. The degree of stenosis in the cervical segment of the internal carotid artery is based on NASCET criteria. Normal is no stenosis. Mild is less than 50% stenosis. Moderate is 50-69% stenosis. Severe is 70% to 99% stenosis. Total occlusion is no detectable patent lumen.
--- NOTE | 2024-12-18 13:44 | P.HP_ITS ---
Providers/Chief Complaint 2 Primary Care Provider: Eva Huber MD Chief Complaint: right side weakness History of Present Illness Syed Maria is a 64 year old male with a past medical history of alcoholism, CAD, carotid artery stenosis, heart failure, hypertension hyperlipidemia who presents to [facility] due to altered mental status, right-sided weakness. 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 Patient does not remember the events of this morning that well no dizziness remember the events of yesterday except that he did have a couple of beers yesterday but he does not remember how many, he was found not showing up to work this morning by his employer, so his employer checked up on him and found him confused sitting on his recliner, he remembers this, here in the hospital, he was found to have a right humeral head fracture he does remember how he developed a fracture, he does not remember falling he denies falling, denies any trauma, no neck pain, no back pain, no hip pain denies any seizure- like episodes, he follows all commands, no significant facial droop, no slurring of his words, it is a difficult to assess right upper extremity strength given that he is in a sling, I would say that his strength is slightly diminished compared to the left, similarly right lower extremity slightly diminished compared to the left, patient was evaluated by the ER, CT head no acute findings, sodium 123, he denies any fevers, chills, no headache, blurry vision, no chest pain, no palpitations, no shortness of breath, he tells me that he works at the [employer], but was retired, he does not have any kids, he has his brother at bedside Review of Systems 2 Const: Reports: fatigue and malaise; Denies: fever(s) or chills Card: Denies: chest pain Resp: Reports: dyspnea GI: Denies: abdominal pain : Denies: flank pain Neuro: Denies: headache(s), numbness in extremities, weakness in extremities, sensory changes, frequent falls, dizziness, vertigo, Slurred speech present, difficulty communicating thoughts or seizure-like activity Medications/Allergies Home Medications Medication Instructions Recorded Confirmed Last Taken Type amlodipine 10 mg tablet 10 mg PO DAILY 01/14/22 12/18/24 03/28/22 History aspirin 81 mg tablet,delayed 81 mg PO DAILY 01/14/22 12/18/24 03/27/22 History release (Adult Aspirin Regimen) carvedilol 25 mg tablet 25 mg PO BID 01/14/22 12/18/24 03/28/22 History clopidogrel 75 mg tablet 75 mg PO DAILY 01/14/22 12/18/24 03/24/22 History lisinopril 40 mg tablet 40 mg PO DAILY 01/14/22 12/18/24 03/28/22 History nitroglycerin 0.4 mg sublingual 0.4 mg sublingual Q5M PRN Chest 01/25/22 12/18/24 3 Years Ago History tablet (Nitrostat) Pain ~03/29/19 multivitamin 1 tab PO DAILY 03/27/22 12/18/24 03/28/22 History Allergies Allergy/AdvReac Type Severity Reaction Status Date / Time [id number] Reductase Allergy Severe Unknown Verified 05/31/24 16:40 Inhibitor allopurinol Allergy ALGY-Rash Verified 05/31/24 16:41 PFSH Acute 2 PFSH: Medical History Hyperlipidemia Carotid stenosis Tobacco use disorder Aortic aneurysm Hypertension Abnormal liver function tests Heart valve disorder GERD (gastroesophageal reflux disease) Vitamin D deficiency Heart failure CAD (coronary artery disease) Gout Statin intolerance Surgical History History of bilateral hip replacements 2000, 2002 History of open heart surgery 2014 History of inguinal hernia repair LEFT 1998 Hx of CABG x 4 vessels History of hip replacement 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 History of PTCA Family History Brother CAD (coronary artery disease) unknown age of onset Sister CAD (coronary artery disease) unknown age of onset Diabetes Mother CAD (coronary artery disease) unknown age of onset Father Cancer Lung disease Family/Other Hypertension Grandmother Suicide Other Dementia Denies family history of Clotting disorder Chronic kidney disease (CKD) Anesthesia complication Bleeding disorder Stroke Social History Smoking and tobacco/nicotine status: current every day tobacco/nicotine user Alcohol intake: current Alcohol intake frequency: few times a week Alcohol type: beer Substance/Drug Use: never Lives independently: Yes Vitals/I&O/Wt Last Vital Signs Temp 97.6 F 12/18/24 09:55 Pulse 71 12/18/24 12:35 Resp 18 12/18/24 11:29 BP 107/50 12/18/24 12:35 Pulse Ox 94 12/18/24 12:35 O2 Del Method Room Air 12/18/24 12:35 Weight last 48 hrs Weight 72.575 kg Physical Exam 2 Const: COMMON NORMALS: no acute distress and patient oriented x3 HENMT: COMMON NORMALS: normocephalic HEAD & SCALP: normocephalic Eye: COMMON NORMALS: Equal, round and reactive pupils present and EOMs intact bilaterally Resp: COMMON NORMALS: normal respiratory effort, No retractions, No use of accessory muscles and clear to auscultation bilaterally AUSCULTATION: clear to auscultation bilaterally Cardio: COMMON NORMALS: regular rate, regular rhythm, S1 normal heart sound present and S2 normal heart sound present RATE: regular rate RHYTHM: r egular rhythm HEART SOUNDS: S1 normal heart sound present and S2 normal heart sound present GI: COMMON NORMALS: Normal to inspection, nondistended, normoactive bowel sounds present, Soft to palpation and non-tender Extremity: COMMON NORMALS: no pedal edema Neuro: COMMON NORMALS: patient oriented x3, CN's II-XII intact bilaterally and moves all extremities OTHER: Right upper extremity in a sling, strength 4 out of 5 Right lower extremity, strength 4 out of 5 [id number] abnormal on the right No facial droop no slurring words, NIH stroke scale 1-2 Psych: COMMON NORMALS: mental status grossly normal Data 12/18/24 10:20 12/18/24 10:20 Micro: Microbiology 12/18/24 10:35 Blood Culture - Preliminary Blood SPECIMEN COLLECTED 12/18/24 10:23 Blood Culture - Preliminary Blood SPECIMEN COLLECTED A&P Assessment and plan (1) Acute CVA (cerebrovascular accident): (2) Hyponatremia: (3) Alcoholism: (4) Increased anion gap metabolic acidosis: (5) Humeral head fracture: (6) Hypertension: (7) Carotid stenosis: (8) Hyperlipidemia: (9) Acute encephalopathy: Plan Acute encephalopathy -Likely component hyponatremia -UA pending -Possibly related to acute CVA, Acute CVA -Concerns for right sided deficits -NIH stroke scale 1-2 -His last known well normal is unknown potentially last night, not a tPA candidate -CT head no acute findings but does show bilateral old occipital infarcts -CTA head and neck has been ordered Plan -Permissive hypertension -Neurochecks -NIH stroke scale -Aspirin, statin, Plavix -Monitor mentation closely -Dysphagia eval -Therapy eval -PT OT -Cardiac echo Right humeral head fracture -In a sling -Nonweightbearing right upper extremity Alcoholism -CIWA protocol Hyponatremia -Hypovolemic hyponatremia -Could be component of beers potomania -Gentle IV hydration at 50 cc an hour Increase anion metabolic acidosis -Could be a component of dehydration -Alcohol ketosis Blood sugar elevated in the 130s check A1c Full code Overnight for DVT prophylaxis Attestations 2 Medical Necessity Statement*: Patient requires hospitalization for acute encephalopathy, acute CVA, right humeral head fracture, alcoholism, hyponatremia, increased anion gap metabolic acidosis, inpatient, greater than 2 midnights Diagnoses Acute CVA (cerebrovascular accident) I63.9 Hyponatremia E87.1 Alcoholism F10.20 Increased anion gap metabolic acidosis E87.29 Humeral head fracture S42.293A Hypertension I10 Carotid stenosis I65.29 Hyperlipidemia E78.5 Acute encephalopathy G93.40
[2024-12-18] MEDS: iohexol 350 mg/mL 500 mL Btl (per mL) IV (13:58)
[2024-12-18 14:39] LABS: Ketone (Acetest) Serum Negative (Negative)
[2024-12-18 14:44] LABS: INR 0.98 (0.8-1.2)
[2024-12-18 14:56] LABS: NT Pro B Type Natriuretic Pept 847 pg/mL (0-125)
--- NOTE | 2024-12-18 16:00 | ECG_ITS ---
[facility] Test Date: 2024-12-18 Pat Name: Syed Maria Department: Room: EDIP Gender: Male Ordering Machine Operator: : [id number] Requested By: Jessie Bailey Order Number: [id number] Perdomo MD: Wilfrid Arellano M.D. Measurements Intervals Ina Rate: 72 P: -14 PA: 157 QRS: 68 QRSD: 154 T: 60 QT: 438 QTc: 480 Interpretive Statements SINUS RHYTHM RIGHT BUNDLE BRANCH BLOCK [120+ ms QRS DURATION, UPRIGHT V1, 40+ ms S IN I/aVL/V4/V5/V6] Compared to ECG 12/18/2024 11:53:45 Junctional rhythm no longer present Electronically Signed On 12-23-2024 22:26:56 CERTIFIED PESTICIDE APPLICATOR by Wilfrid Arellano M.D. [id number]
[2024-12-18] MEDS: atorvastatin 40 mg Tablet 20 MG PO (16:48)
[2024-12-18] MEDS: aspirin 81 mg EC Tablet PO (16:48)
[2024-12-18] MEDS: thiamine 100 mg/mL 2mL SDV IM (16:49)
[2024-12-18] MEDS: enoxaparin 40 mg/0.4 mL Syringe SUBCUT (16:50)
[2024-12-18] MEDS: pantoprazole 40 mg SDV IVP (16:51)
[2024-12-18] MEDS: sodium chloride 0.9% 1,000 ML 50 ML IV (16:53)
[2024-12-18 17:13] LABS: Chol HDL Ratio 2.89 mg/dL (1.0-5.00); Cholesterol 211 mg/dL (0-200); HDL Cholesterol 73 mg/dL (60-100); LDL Cholesterol Calculated 124 mg/dL (50-129); Thyroid Stimulating Hormone 1.11 uIU/mL (0.27-4.20); Triglycerides 72 mg/dL (0-150)
--- NOTE | 2024-12-18 17:14 | PC.NURSE ---
PER VERBAL ORDER FROM DR. JUNIOR, ORDER AND INSERT HART CATHETER.
[2024-12-18 17:41] LABS: Bilirubin Urine Negative (Negative); Blood Urine Negative (Negative); Glucose Urine UA Negative (Normal); Ketones Urine Trace (Negative); Leukocyte Esterase Urine Negative (Negative); Nitrate Urine Negative (Negative); Protein Urine Negative (Negative); Urine Appearance Clear (CLEAR); Urine Color Yellow (Yellow); Urobilinogen Urine 0.2 mg/dL (Negative)
[2024-12-18 17:46] LABS: Bacteria Urine None Seen /hpf; Hyaline Casts Urine 0.81 /lpf; RBC Urine 0-2 /hpf (0-2); Squamous Epithelial Cell Urine 0-5 /hpf (0-5); WBC Urine 0-5 /hpf (0-5)
[2024-12-18 17:48] LABS: Amphetamines Screen Urine Negative (Negative); Barbiturates Screen Urine Negative (Negative); Benzodiazepines Screen Urine Negative (Negative); Cocaine Screen Urine Negative (Negative); Opiate Screen Urine Positive (Negative); PCP Screen Urine Negative (Negative); Specific Gravity, Urine 1.036 (1.005-1.030); THC Screen Urine Negative (Negative)
[2024-12-18 18:49] LABS: Glucose Point of Care 113 mg/dL (70-110)
[2024-12-18 19:00] LABS: Estmated Average Glucose 94; Hemoglobin A1C 4.9 % (4.0-6.0)
[2024-12-18 19:01] LABS: Sodium 125 mmol/L (136-145)
[2024-12-18] MEDS: acetaminophen 325 mg Tablet 650 MG PO (20:52)
--- NOTE | 2024-12-18 20:55 | PC.NURSE ---
Patient sleeping in bed at this time.
[2024-12-18] MEDS: morphine 4 mg/mL SDV 1 mL 2 MG IVP (22:21)
[2024-12-18 23:40] LABS: Sodium 127 mmol/L (136-145)
[2024-12-19] VITALS (16 sets, daily range): BP systolic 108–151; BP diastolic 34–80; PULSE 74–96; RESP 15–18; TEMP 36.4–36.8; O2SAT 90–98
--- NOTE | 2024-12-19 01:48 | PC.NURSE ---
0110: Patient sleeping in bed at this time
[2024-12-19] MEDS: morphine 4 mg/mL SDV 1 mL 2 MG IVP ×4 (01:58→17:14)
[2024-12-19] MEDS: pantoprazole 40 mg SDV IVP ×2 (04:17→17:14)
[2024-12-19 05:39] LABS: Basophils % 0.1 %; Eosinophils % 0.3 %; Hematocrit 26.9 % (37-53); Lymphocytes # 0.6 10^3/uL (0.8-4.8); Lymphocytes % 8.3 %; Mean Corpuscular HGB Conc 32.3 g/dL (30-55); Mean Corpuscular Hemoglobin 33.3 pg (27-33); Mean Corpuscular Volume 103.1 fl (82-101); Mean Platelet Volume 10.5 fL (7.4-10.4); Monocytes # 0.3 10^3/uL (0.2-0.9); Monocytes % 4.3 %; Neutrophils # 6.27 10^3/uL (1.8-7.7); Neutrophils % 86.2 %; Nucleated Red Blood Cells % 0 %; Platelet Count 71 10^3/cmm (157-399); Red Blood Count 2.61 10^6/uL (3.85-5.65); Red Cell Distribution Width 12.7 % (12.1-15.1); White Blood Count 7.27 10^3/uL (3.29-11.43)
[2024-12-19 06:11] LABS: Alanine Aminotransferase 17 U/L (0-41); Albumin Level 3.6 g/dL (3.5-5.2); Alkaline Phosphatase 76 U/L (40-130); Aspartate Amino Transferase 49 U/L (0-40); Blood Urea Nitrogen 12 mg/dL (8-23); Calcium 8.2 mg/dL (8.5-10.5); Carbon Dioxide 19 mmol/L (22-29); Chloride 96 mmol/L (98-107); Creatinine Clr Calc Pharmacy 62.8907; Globulin 2.7 g/dL (1.3-4.6); Glucose 131 mg/dL (65-115); Magnesium 1.9 mg/dL (1.7-2.3); Osmolality Calculated 270 mOsm/kg (285-295); Phosphorus 2.7 mg/dL (2.5-4.5); Sodium 129 mmol/L (136-145); Total Bilirubin 0.3 mg/dL (0.15-1.2); Total Protein 6.3 g/dL (6.6-8.7)
[2024-12-19 06:12] LABS: Sodium 130 mmol/L (136-145)
[2024-12-19 06:34] LABS: Glucose Point of Care 147 mg/dL (70-110)
[2024-12-19] MEDS: thiamine 100 mg Tablet PO (08:18)
[2024-12-19] MEDS: folic acid 1 mg Tablet PO (08:18)
[2024-12-19] MEDS: clopidogrel 75 mg Tablet PO (08:18)
[2024-12-19] MEDS: aspirin 81 mg EC Tablet PO (08:18)
[2024-12-19] MEDS: multivitamin therapeutic Tablet 1 TAB PO (08:18)
[2024-12-19] MEDS: potassium chloride ER 20 mEq Tablet 40 MEQ PO (10:36)
[2024-12-19 11:12] LABS: Sodium 127 mmol/L (136-145)
[2024-12-19 12:21] LABS: Glucose Point of Care 141 mg/dL (70-110)
--- NOTE | 2024-12-19 12:43 | P.PN_ITS ---
Subjective 2 Subjective: Patient was seen this morning, family member at bedside he is alert to person, to place not to time he follows all commands no nausea, no vomiting, abdominal pain no fevers, no chills, no lightheadedness, Vitals/I&O/Wt Last Vital Signs Temp 97.7 F 12/19/24 12:00 Pulse 79 12/19/24 12:00 Resp 15 12/19/24 12:00 BP 126/60 12/19/24 12:00 Pulse Ox 90 12/19/24 12:00 O2 Del Method Room Air 12/19/24 12:00 12/18/24 12/19/24 12/19/24 22:59 06:59 14:59 Intake Total 1000 / 1000 847.5 / 847.5 Output Total 950 / 950 500 / 1450 Balance -950 / -950 500 / -450 847.5 / 847.5 Weight last 48 hrs Weight 72.575 kg Physical Exam 2 Const: COMMON NORMALS: no acute distress and patient oriented x3 Resp: COMMON NORMALS: normal respiratory effort, No retractions, No use of accessory muscles and clear to auscultation bilaterally AUSCULTATION: clear to auscultation bilaterally Cardio: COMMON NORMALS: regular rate, regular rhythm, S1 normal heart sound present and S2 normal heart sound present RATE: regular rate RHYTHM: r egular rhythm HEART SOUNDS: S1 normal heart sound present and S2 normal heart sound present GI: COMMON NORMALS: Normal to inspection, nondistended, normoactive bowel sounds present and non-tender Extremity: COMMON NORMALS: no pedal edema NARRATIVE EXTREMITY EXAM: Has slight left upper extremity weakness, left lower extremity weakness similar compared to yesterday no other focal neurologic deficits Neuro: COMMON NORMALS: patient oriented x3 Psych: COMMON NORMALS: mental status grossly normal Data 12/19/24 05:23 12/19/24 10:50 Micro: Microbiology 12/18/24 10:35 Blood Culture - Preliminary Blood NEGATIVE TO DATE 12/18/24 10:23 Blood Culture - Preliminary Blood NEGATIVE TO DATE A&P Assessment and plan (1) Acute CVA (cerebrovascular accident): (2) Hyponatremia: (3) Alcoholism: (4) Increased anion gap metabolic acidosis: (5) Humeral head fracture: (6) Hypertension: (7) Carotid stenosis: (8) Hyperlipidemia: (9) Acute encephalopathy: Plan Acute encephalopathy -Likely component hyponatremia, resolving -UA within normal limits -Possibly related to acute CVA, Acute CVA -Concerns for right sided deficits, very slight right-sided deficits persist, specifically weakness -NIH stroke scale 1-2 -His last known well normal is unknown potentially last night, not a tPA candidate -CT head no acute findings but does show bilateral old occipital infarcts -CTA head and neck CT/CT angio headneck* [id number] IMPRESSION: 1. Moderate distal internal carotid artery stenoses within the cavernous sinus. 2. No evidence of large vessel occlusion. IMPRESSION: 1. Right distal internal carotid artery patent stent extending into the proximal internal carotid artery. 50-60% moderate stenosis involving the stent. 2. Occluded right vertebral artery with minimal reconstitution at its distal aspect. 3. Severe stenosis proximal left vertebral artery. 4. Moderate stenosis proximal left internal carotid artery. 5. Moderate to emphysematous disease Plan -Permissive hypertension -Neurochecks -NIH stroke scale -Aspirin, statin, Plavix -Monitor mentation closely -Dysphagia eval -Therapy eval -PT OT -Cardiac echo CONCLUSIONS Limited echocardiogram performed to assess LV function and for bubble study. LV systolic function has normal with EF of 60-65%. Bubble study is limited quality because of poor imaging quality. However grossly no crossover of bubbles seen. Doppler exam of valves not seen. Right humeral head fracture -In a sling -Nonweightbearing right upper extremity Alcoholism -CIWA protocol Hyponatremia improving to 130 -Hypovolemic hyponatremia -Could be component of beers potomania -Gentle IV hydration at 50 cc an hour, completed, switch Increase anion metabolic acidosis -Could be a component of dehydration -Alcohol ketosis Blood sugar elevated in the 130s check A1c 4.9 Full code Overnight for DVT prophylaxis Attestations 2 Medical Necessity Statement*: Patient requires hospitalization for acute encephalopathy, hyponatremia, acute CVA Diagnoses Acute CVA (cerebrovascular accident) I63.9 Hyponatremia E87.1 Alcoholism F10.20 Increased anion gap metabolic acidosis E87.29 Humeral head fracture S42.293A Hypertension I10 Carotid stenosis I65.29 Hyperlipidemia E78.5 Acute encephalopathy G93.40
[2024-12-19] MEDS: sodium chloride 1 gm Tablet PO ×2 (12:52→17:14)
--- NOTE | 2024-12-19 13:43 | USCV_ITS ---
Syed Maria Age: 64 Gender: M : 1960 Exam Date: 12/19/2024 09:46 Ordering Phys: Wilfredo Motley MD Technologist: Greg White Exam Location: [facility] – [place] Indication: cva BP: 119 / 54 HR: Rhythm: Sinus Technical Quality: MEASUREMENTS (Male / Female) Normal Values 2D ECHO LV Diastolic Diameter PLAX 4.6 cm 4.2 - 5.9 / 3.9 - 5.3 cm IVS Diastolic Thickness 0.9 cm 0.6 - 1.0 / 0.6 - 0.9 cm IVS Systolic Thickness 1.2 cm LVPW Diastolic Thickness 1.5 cm 0.6 - 1.0 / 0.6 - 0.9 cm LVPW Systolic Thickness 1.6 cm LVOT Diameter 2.1 cm LV Ejection Fraction 2D Teich 77.7 % LV Ejection Fraction MOD 4C 64.3 % LV Ejection Fraction MOD 2C 53.0 % LV Ejection Fraction 2C AL 50.9 % LA Diameter 3.6 cm RA Systolic Volume 4C AL 30.1 ml RA Systolic Volume 4C MOD 29.5 ml LA Sys Volume AL 46.0 cm cubed LA Sys Volume Index AL 24.8 cm cubed/m squared Aorta at Sinotubular Diameter 2.4 cm IVC Diameter 1.5 cm M-MODE LA Ao Ratio MM 1.2 AV Cusp Separation MM 1.5 cm FINDINGS Left Ventricle Left ventricle is normal size. LV systolic function is normal with EF of 60-65%. No regional wall motion abnormalities are seen. Right Ventricle Normal in size and function Right Atrium Normal in size. Bubble study is limited quality because of poor imaging quality. However grossly no crossover of bubbles seen. Left Atrium Normal in size Mitral Valve Structurally normal mitral valve. Aortic Valve Aortic valve is thickened. Tricuspid Valve Grossly normal Pulmonic Valve Not well visualized Pericardium Normal Aorta Normal in size IVC Appears to be normal CONCLUSIONS Limited echocardiogram performed to assess LV function and for bubble study. LV systolic function has normal with EF of 60-65%. Bubble study is limited quality because of poor imaging quality. However grossly no crossover of bubbles seen. Doppler exam of valves not seen. Wilfrid Arellano MD (Electronically Signed) Final Date: 19 December 2024 12:21 S
[2024-12-19 13:57] LABS: Basophils % 0.1 %; Eosinophils # 0.1 10^3/uL (0.0-0.8); Hematocrit 25.7 % (37-53); Lymphocytes # 0.7 10^3/uL (0.8-4.8); Lymphocytes % 9.1 %; Mean Corpuscular HGB Conc 34.2 g/dL (30-55); Mean Corpuscular Hemoglobin 33.6 pg (27-33); Mean Corpuscular Volume 98.1 fl (82-101); Mean Platelet Volume 10.2 fL (7.4-10.4); Monocytes # 0.4 10^3/uL (0.2-0.9); Monocytes % 5.6 %; Neutrophils # 5.98 10^3/uL (1.8-7.7); Neutrophils % 83.5 %; Nucleated Red Blood Cells % 0 %; Platelet Count 66 10^3/cmm (157-399); Red Blood Count 2.62 10^6/uL (3.85-5.65); Red Cell Distribution Width 12.7 % (12.1-15.1); White Blood Count 7.16 10^3/uL (3.29-11.43)
[2024-12-19 16:36] LABS: Glucose Point of Care 134 mg/dL (70-110)
[2024-12-19] MEDS: enoxaparin 40 mg/0.4 mL Syringe SUBCUT (17:13)
[2024-12-19] MEDS: atorvastatin 40 mg Tablet 20 MG PO (20:28)
[2024-12-19 20:53] LABS: Glucose Point of Care 130 mg/dL (70-110)
[2024-12-20] VITALS: BP 138/70; PULSE 85; RESP 19; TEMP 37.1; O2SAT 91
[2024-12-20 04:00] VITALS: BP 138/69; PULSE 89; RESP 18; TEMP 36.8; O2SAT 92
[2024-12-20] MEDS: pantoprazole 40 mg SDV IVP (04:46)
[2024-12-20 04:50] LABS: Basophils % 0.3 %; Eosinophils # 0.1 10^3/uL (0.0-0.8); Eosinophils % 1.8 %; Hematocrit 27.4 % (37-53); Lymphocytes # 0.7 10^3/uL (0.8-4.8); Lymphocytes % 9.5 %; Mean Corpuscular HGB Conc 32.8 g/dL (30-55); Mean Corpuscular Hemoglobin 33.3 pg (27-33); Mean Corpuscular Volume 101.5 fl (82-101); Mean Platelet Volume 10.6 fL (7.4-10.4); Monocytes # 0.4 10^3/uL (0.2-0.9); Monocytes % 5.7 %; Neutrophils % 81.8 %; Nucleated Red Blood Cells % 0 %; Platelet Count 69 10^3/cmm (157-399); Red Cell Distribution Width 12.6 % (12.1-15.1); White Blood Count 6.84 10^3/uL (3.29-11.43)
[2024-12-20 05:07] LABS: Alanine Aminotransferase 23 U/L (0-41); Albumin Level 3.5 g/dL (3.5-5.2); Alkaline Phosphatase 74 U/L (40-130); Aspartate Amino Transferase 94 U/L (0-40); Blood Urea Nitrogen 10 mg/dL (8-23); Calcium 8.4 mg/dL (8.5-10.5); Carbon Dioxide 17 mmol/L (22-29); Chloride 95 mmol/L (98-107); Creatinine Clr Calc Pharmacy 69.1797; Globulin 2.9 g/dL (1.3-4.6); Glomerular Filtration Rate 74.8 mL/min (90-130); Glucose 111 mg/dL (65-115); Magnesium 1.7 mg/dL (1.7-2.3); Osmolality Calculated 266 mOsm/kg (285-295); Phosphorus 1.7 mg/dL (2.5-4.5); Sodium 128 mmol/L (136-145); Total Bilirubin 0.5 mg/dL (0.15-1.2); Total Protein 6.4 g/dL (6.6-8.7)
[2024-12-20 05:16] LABS: Anion Gap 19.4 (5-19); Potassium 3.4 mmol/L (3.5-5.1)
[2024-12-20 06:33] LABS: Glucose Point of Care 121 mg/dL (70-110)
[2024-12-20 08:00] VITALS: BP 171/88; PULSE 90; RESP 14; TEMP 36.8; O2SAT 98
[2024-12-20] MEDS: folic acid 1 mg Tablet PO (09:55)
[2024-12-20] MEDS: aspirin 81 mg EC Tablet PO (09:55)
[2024-12-20] MEDS: multivitamin therapeutic Tablet 1 TAB PO (09:55)
[2024-12-20] MEDS: sodium chloride 1 gm Tablet PO (09:55)
[2024-12-20] MEDS: thiamine 100 mg Tablet PO (09:55)
[2024-12-20] MEDS: clopidogrel 75 mg Tablet PO (09:55)
[2024-12-20] MEDS: potassium phosphate (mEq K) 40 MEQ in sodium chloride 0.9% (100 ml) 100 ML 27.25 MEQ IV (09:56)
[2024-12-20] MEDS: acetaminophen 325 mg Tablet 650 MG PO (09:56)
--- NOTE | 2024-12-20 11:38 | P.DS_ITS ---
Discharge Providers Date of Admission: 12/18/24 12:29 Date of Discharge: December 20, 2024 Attending Provider at Admission: Wilfredo Motley MD Attending Provider at Discharge: Wilfredo Motley MD Primary Care Provider: Eva Huber MD Diagnoses at Discharge Discharge Diagnosis (1) Acute CVA (cerebrovascular accident): Status: Acute (2) Hyponatremia: Status: Acute (3) Alcoholism: Status: Acute (4) Increased anion gap metabolic acidosis: Status: Acute (5) Humeral head fracture: Status: Acute (6) Hypertension: Status: Acute (7) Carotid stenosis: Status: Acute (8) Hyperlipidemia: Status: Acute (9) Acute encephalopathy: Status: Acute Reason for Visit Reason for Visit: right side weakness Hospital Course Hospital Course Syed Maria is a 64 year old male with a past medical history of alcoholism, CAD, carotid artery stenosis, heart failure, hypertension hyperlipidemia who presents to [facility] due to altered mental status, right-sided weakness. 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 Patient does not remember the events of this morning that well no dizziness remember the events of yesterday except that he did have a couple of beers yesterday but he does not remember how many, he was found not showing up to work this morning by his employer, so his employer checked up on him and found him confused sitting on his recliner, he remembers this, here in the hospital, he was found to have a right humeral head fracture he does remember how he developed a fracture, he does not remember falling he denies falling, denies any trauma, no neck pain, no back pain, no hip pain denies any seizure- like episodes, he follows all commands, no significant facial droop, no slurring of his words, it is a difficult to assess right upper extremity strength given that he is in a sling, I would say that his strength is slightly diminished compared to the left, similarly right lower extremity slightly diminished compared to the left, patient was evaluated by the ER, CT head no acute findings, sodium 123, he denies any fevers, chills, no headache, blurry vision, no chest pain, no palpitations, no shortness of breath, he tells me that 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 Patient is alert oriented x 3, following all commands no seizure-like episodes Patient was found to have a right humeral head fracture, managed with a sling, he is nonweightbearing right upper extremity, discharging him with an shoulder mobilizer order, with follow-up with Dr. Johnson as outpatient, discharged with hydrocodone to be used sparingly for pain do not drive or operate heavy machinery or drink while taking medication Patient's hospitalization was complicated by increased anion gap metabolic acidosis likely dehydration, alcohol ketosis, Hospitalization was complicated with anemia, thrombocytopenia likely related to alcoholism, advised to follow-up with primary care provider as outpatient repeat CBC in 48 hours On admission there was concerns for acute CVA -Concerns for right sided deficits, very slight right-sided deficits persist, specifically weakness -NIH stroke scale 1-2 -His last known well normal is unknown potentially last night, not a tPA candidate -CT head no acute findings but does show bilateral old occipital infarcts -CTA head and neck CT/CT angio headneck* [id number] IMPRESSION: 1. Moderate distal internal carotid artery stenoses within the cavernous sinus. 2. No evidence of large vessel occlusion. IMPRESSION: 1. Right distal internal carotid artery patent stent extending into the proximal internal carotid artery. 50-60% moderate stenosis involving the stent. 2. Occluded right vertebral artery with minimal reconstitution at its distal aspect. 3. Severe stenosis proximal left vertebral artery. 4. Moderate stenosis proximal left internal carotid artery. 5. Moderate to emphysematous disease -Was monitored as inpatient receive speech therapy, PT OT # Overall patient's right-sided deficits have resolved # Ambulating without significant assistance ? Discharged on his home aspirin, Plavix has an allergy to statin ? Follow-up with neurology follow-up with primary care provider as outpatient ? Patient was advised if he were to have any recurrent strokelike symptoms to immediately call 9 11 I had a lengthy discussion with patient about alcohol cessation counseling Physical Exam Const: COMMON NORMALS: no acute distress and patient oriented x3 Resp: COMMON NORMALS: normal respiratory effort, No retractions, No use of accessory muscles and clear to auscultation bilaterally AUSCULTATION: clear to auscultation bilaterally Cardio: COMMON NORMALS: regular rate, regular rhythm, S1 normal heart sound present and S2 normal heart sound present RATE: regular rate RHYTHM: regular rhythm HEART SOUNDS: S1 normal heart sound present and S2 normal heart sound present GI: COMMON NORMALS: Normal to inspection, nondistended, normoactive bowel sounds present and non-tender Extremity: COMMON NORMALS: no pedal edema Neuro: COMMON NORMALS: patient oriented x3 Psych: COMMON NORMALS: mental status grossly normal Discharge Data Studies Completed and Pending Completed Studies During Hospitalization Category Date Time Status CT angio head neck [CT angio headneck* [id number]] Cat Scan 12/18/24 13:[address] head wo con* [id number] Stat Cat Scan 12/18/24 09:59 Completed XR chest 1V portable [id number] Stat Exams 12/18/24 10:00 Completed XR hip RT 2-3V wo/w pel* [id number] Stat Exams 12/18/24 10:18 Completed XR pelvis 1-2V* [id number] Stat Exams 12/18/24 11:33 Completed XR shoulder RT min 2V* [id number] Stat Exams 12/18/24 09:59 Completed CV. echo lmt wo/w bubble [id number] Stat Ultrasound 12/19/24 13:43 Completed Pending at discharge Category Date Time Status Blood Culture Stat Lab 12/18/24 10:35 Results Complete Blood Count w/Auto AM LABS Lab 12/21/24 04:00 Ordered Comprehensive Metabolic Panel AM LABS Lab 12/21/24 04:00 Ordered Magnesium AM LABS Lab 12/21/24 04:00 Ordered Phosphorus AM LABS Lab 12/21/24 04:00 Ordered Radiology Impressions Head CT 12/18/24 09:59 IMPRESSION: No acute abnormality. 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 ASSESSMENT: ASPECTS ([place] Stroke Program Early CT Score) is 10. ADDENDUM: 12/18/24 1018 THIS REPORT CONTAINS FINDINGS THAT MAY BE CRITICAL TO PATIENT CARE. The findings were verbally communicated by me to HALI PAUL at 10:16 AM PERFUMER on 12/18/2024. The findings were acknowledged and understood. Shoulder X-Ray 12/18/24 09:59 IMPRESSION: Humeral head fracture. Chest X-Ray 12/18/24 10:00 IMPRESSION: 1. The lungs are clear. 2. There is a shoulder fracture. Is there history of trauma? Hip/Pelvis X-Ray 12/18/24 10:18 IMPRESSION: No acute findings. Pelvis X-Ray 12/18/24 11:33 IMPRESSION: Single views of the hips demonstrate bilateral hip replacements in good alignment. Head/Neck CTA 12/18/24 13:39 IMPRESSION: 1. Moderate distal internal carotid artery stenoses within the cavernous sinus. 2. No evidence of large vessel occlusion. IMPRESSION: 1. Right distal internal carotid artery patent stent extending into the proximal internal carotid artery. 50-60% moderate stenosis involving the stent. 2. Occluded right vertebral artery with minimal reconstitution at its distal aspect. 3. Severe stenosis proximal left vertebral artery. 4. Moderate stenosis proximal left internal carotid artery. 5. Moderate to emphysematous disease REFERENCES: NASCET CRITERIA. The degree of stenosis in the cervical segment of the internal carotid artery is based on NASCET criteria. Normal is no stenosis. Mild is less than 50% stenosis. Moderate is 50-69% stenosis. Severe is 70% to 99% stenosis. Total occlusion is no detectable patent lumen. Laboratory Results WBC 6.84 10^3/uL (3.29-11.43) 12/20/24 04:16 RBC 2.70 10^6/uL (3.85-5.65) L 12/20/24 04:16 Hgb 9.00 g/dL (11.27-16.99) L 12/20/24 04:16 Hct 27.4 % (37-53) L 12/20/24 04:16 MCV 101.5 fl (82-101) H 12/20/24 04:16 MCH 33.3 pg (27-33) H 12/20/24 04:16 MCHC 32.8 g/dL (30-55) 12/20/24 04:16 RDW 12.6 % (12.1-15.1) 12/20/24 04:16 Plt Count 69 10^3/cmm (157-399) L 12/20/24 04:16 MPV 10.6 fL (7.4-10.4) H 12/20/24 04:16 Neut % (Auto) 81.8 % 12/20/24 04:16 Lymph % (Auto) 9.5 % 12/20/24 04:16 [place] % (Auto) 5.7 % 12/20/24 04:16 Eos % (Auto) 1.8 % 12/20/24 04:16 Baso % (Auto) 0.3 % 12/20/24 04:16 Neut # (Auto) 5.60 10^3/uL (1.8-7.7) 12/20/24 04:16 Lymph # (Auto) 0.7 10^3/uL (0.8-4.8) L 12/20/24 04:16 [place] # (Auto) 0.4 10^3/uL (0.2-0.9) 12/20/24 04:16 Eos # (Auto) 0.1 10^3/uL (0.0-0.8) 12/20/24 04:16 Baso # (Auto) 0.0 10^3/uL (0.0-0.1) 12/20/24 04:16 Nucleated RBC % (auto) 0 % 12/20/24 04:16 Nucleated RBCs # 0.0 /100WBC 12/20/24 04:16 PT 13.70 SECONDS (12.1-14.9) 12/18/24 10:20 INR 0.98 (0.8-1.2) 12/18/24 10:20 Sodium 128 mmol/L (136-145) L 12/20/24 04:16 Potassium 3.4 mmol/L (3.5-5.1) L 12/20/24 04:16 Chloride 95 mmol/L (98-107) L 12/20/24 04:16 Carbon Dioxide 17 mmol/L (22-29) L 12/20/24 04:16 Anion Gap 19.4 (5-19) H 12/20/24 04:16 BUN 10 mg/dL (8-23) 12/20/24 04:16 Creatinine 1.0 mg/dL (0.7-1.2) 12/20/24 04:16 GFR Calculation 74.8 mL/min (90-130) L 12/20/24 04:16 Glucose 111 mg/dL (65-115) 12/20/24 04:16 POC Glucose 121 mg/dL (70-110) H 12/20/24 06:27 Estimat Average Glucose 94 12/18/24 10:20 Hemoglobin A1c 4.9 % (4.0-6.0) 12/18/24 10:20 Calculated Osmolality 266 mOsm/kg (285-295) L 12/20/24 04:16 Lactic Acid 1.2 mmol/L (0.5-2.2) 12/18/24 10:20 Calcium 8.4 mg/dL (8.5-10.5) L 12/20/24 04:16 Phosphorus 1.7 mg/dL (2.5-4.5) L 12/20/24 04:16 Magnesium 1.7 mg/dL (1.7-2.3) 12/20/24 04:16 Total Bilirubin 0.5 mg/dL (0.15-1.2) 12/20/24 04:16 AST 94 U/L (0-40) H 12/20/24 04:16 ALT 23 U/L (0-41) 12/20/24 04:16 Alkaline Phosphatase 74 U/L (40-130) 12/20/24 04:16 Troponin T Baseline 17 ng/L (0-15) H 12/18/24 10:20 Troponin T 120 Minute 14.50 ng/L (0-15) 12/18/24 14:50 Delta Troponin T -2.50 ABS# (0-10) L 12/18/24 14:50 Troponin T Hi Sens 6Hr 14.90 ng/L (0-15) 12/18/24 18:30 Troponin T Hi Sens 6Hr Delta -2.10 ng/L (0-12) L 12/18/24 18:30 C-Reactive Protein 5.1 mg/L (0.0-4.9) H 12/18/24 10:20 NT-Pro-B Natriuret Pep 847 pg/mL (0-125) H 12/18/24 10:20 Total Protein 6.4 g/dL (6.6-8.7) L 12/20/24 04:16 Albumin 3.5 g/dL (3.5-5.2) 12/20/24 04:16 Globulin 2.9 g/dL (1.3-4.6) 12/20/24 04:16 Triglycerides 72 mg/dL (0-150) 12/18/24 10:20 Cholesterol 211 mg/dL (0-200) H 12/18/24 10:20 LDL Cholesterol, Calc 124 mg/dL (50-129) 12/18/24 10:20 HDL Cholesterol 73 mg/dL (60-100) 12/18/24 10:20 LDL/HDL Ratio 1.70 RATIO (0.00-3.22) 12/18/24 10:20 Cholesterol/HDL Ratio 2.89 mg/dL (1.0-5.00) 12/18/24 10:20 Procalcitonin 0.30 ng/mL (0-0.5) 12/18/24 10:20 TSH 1.11 uIU/mL (0.27-4.20) 12/18/24 10:20 Urine Color Yellow (Yellow) 12/18/24 17:29 Urine Appearance Clear (CLEAR) 12/18/24 17: Urine pH 7.0 (5-7) 12/18/24 17:29 Ur Specific [place] 1.036 (1.005-1.030) H 12/18/24 17:29 Urine Protein Negative (Negative) 12/18/24 17: Urine Glucose (UA) Negative (Normal) 12/18/24 17:29 Urine Ketones Trace (Negative) 12/18/24 17: Urine Blood Negative (Negative) 12/18/24 17: Urine Nitrate Negative (Negative) 12/18/24 17: Urine Bilirubin Negative (Negative) 12/18/24 17: Urine Urobilinogen 0.2 mg/dL (Negative) 12/18/24 17:29 Ur Leukocyte Esterase Negative (Negative) 12/18/24 17:29 Urine RBC 0-2 /hpf (0-2) 12/18/24 17:29 Urine WBC 0-5 /hpf (0-5) 12/18/24 17:29 Ur Squamous Epith Cells 0-5 /hpf (0-5) 12/18/24 17:29 Amorphous Sediment Not Reportable 12/18/24 17:29 Urine Bacteria None seen /hpf (NONE) 12/18/24 17:29 Hyaline Casts 0.81 /lpf 12/18/24 17:29 Urine Opiates Screen Positive ng/mL (Negative) H 12/18/24 17:29 Ur Barbiturates Screen Negative ng/mL (Negative) 12/18/24 17:29 Ur Phencyclidine Scrn Negative ng/mL (Negative) 12/18/24 17:29 Ur Amphetamines Screen Negative ng/mL (Negative) 12/18/24 17:29 U Benzodiazepines Scrn Negative ng/mL (Negative) 12/18/24 17:29 Urine Cocaine Screen Negative ng/mL (Negative) 12/18/24 17:29 U Marijuana (THC) Screen Negative ng/mL (Negative) 12/18/24 17:29 Ethyl Alcohol < 10 mg/dL (0-10) 12/18/24 10:20 Serum Ketones Negative (Negative) 12/18/24 10:20 Coronavirus (PCR) Negative (Negative) 12/18/24 10:22 Influenza A (PCR) Negative (Negative) 12/18/24 10:22 Influenza Type B (PCR) Negative (Negative) 12/18/24 10:22 RSV (PCR) Negative (Negative) 12/18/24 10:22 Vitals Last Vital Signs Temp 98.3 F 12/20/24 08:00 Pulse 90 12/20/24 08:00 Resp 14 12/20/24 08:00 BP 171/88 12/20/24 08:00 Pulse Ox 98 12/20/24 08:00 O2 Del Method Room Air 12/20/24 08:00 Discharge Plan Discharge Condition: Stable Prescriptions: New thiamine mononitrate (vit B1) [Vitamin B-1 (mononitrate)] 100 mg Tablet 100 mg PO DAILY 30 Days Qty: 30 0RF multivitamin with folic acid [Thera] 400 mcg Tablet 1 tab PO DAILY 30 Days Qty: 30 0RF Continued clopidogrel 75 mg tablet 75 mg PO DAILY Hold Instructions: Resume on 02/12/22. carvedilol 25 mg tablet 25 mg PO BID Rx Instructions: must administer with a meal/food amlodipine 10 mg tablet 10 mg PO DAILY aspirin [Adult Aspirin Regimen] 81 mg tablet,delayed release (DR/EC) 81 mg PO DAILY Hold Instructions: Resume on 02/13/22. nitroglycerin [Nitrostat] 0.4 mg tablet, sublingual 0.4 mg sublingual Q5M PRN (Reason: Chest Pain) Rx Instructions: do not exceed 3 doses per episode multivitamin Tablet 1 tab PO DAILY Changed lisinopril 40 mg tablet 20 mg PO BID Qty: 30 0RF Discharge Orders: Discharge Order (Routine); Ordered 12/20/24 Ordered By: Wilfredo Motley Referrals: Eva Huber MD [Primary Care Provider] - Melisa Smith MD [Physician] - 2 weeks (We have notified your physician's clinic of the need for a follow-up appointment to be scheduled. If you have not heard from them within the next 2 business days, please call them directly. ) Cristian Johnson DO [Physician] - 7-10 days (We have notified your physician's clinic of the need for a follow-up appointment to be scheduled. If you have not heard from them within the next 2 business days, please call them directly. ) Discharge Diet: Cardiac Discharge Activity: Resume usual activity Patient Instructions: Alcoholism, Thiamine (By mouth), Fractures - Humerus, Hyponatremia (DC), Opioid Safety Activity Restrictions/Additional Instructions: - Please wear for right shoulder immobilizer as prescribed -Please abstain from alcohol consumption -Please have your primary care provider recheck your sodium in 48 hours -Please have your primary care provider recheck your hemoglobin and your platelet count in the next 48 to 72 hours Discharge Attestations Time Spent in Discharge Care*: greater than 30 min Quality Metrics Clinical Quality Measures [ No reported AMI, CVA or VTE this stay] Coding Level of Care Code 92449 Total time (in minutes) for Discharge: 45 Diagnoses Acute CVA (cerebrovascular accident) I63.9 Hyponatremia E87.1 Alcoholism F10.20 Increased anion gap metabolic acidosis E87.29 Humeral head fracture S42.293A Hypertension I10 Carotid stenosis I65.29 Hyperlipidemia E78.5 Acute encephalopathy G93.40
[2024-12-20 11:57] LABS: Glucose Point of Care 200 mg/dL (70-110)
[2024-12-20 11:59] VITALS: BP 162/73; PULSE 86; RESP 14; TEMP 36.7; O2SAT 96
[2024-12-20] MEDS: HYDROcodone-acetaminophen 5-325 mg Tablet 1 TAB PO (12:05)
[2024-12-20] MEDS: amlodipine 10 mg Tablet PO (12:06)
[2024-12-20] MEDS: lisinopril 20 mg Tablet PO (12:06)
== END 2024-12-20 14:09 | disposition home or self-care (01) | DRG 641 ==
LOC: ER 12:33 → ER IP 14:28 → MEDSURG 12-19 01:10
PROVIDERS: Admitting Provider Family Medicine; Emergency Provider Emergency Medicine; PCP Family Medicine; Visit Provider Family Medicine
DX: E87.1 Hypo-osmolality and hyponatremia (principal); S42.211A Unspecified displaced fracture of surgical neck of right humerus, initial encounter for closed fracture; G93.40 Encephalopathy, unspecified; E87.20 Acidosis, unspecified; F10.20 Alcohol dependence, uncomplicated; X58.XXXA Exposure to other specified factors, initial encounter; I10 Essential (primary) hypertension; E78.5 Hyperlipidemia, unspecified; I25.10 Atherosclerotic heart disease of native coronary artery without angina pectoris; Z95.5 Presence of coronary angioplasty implant and graft; E86.1 Hypovolemia; E86.0 Dehydration; D69.59 Other secondary thrombocytopenia; Z79.02 Long term (current) use of antithrombotics/antiplatelets; Z79.82 Long term (current) use of aspirin; M10.9 Gout, unspecified; K21.9 Gastro-esophageal reflux disease without esophagitis; F17.200 Nicotine dependence, unspecified, uncomplicated; D64.9 Anemia, unspecified; Z86.73 Personal history of transient ischemic attack (TIA), and cerebral infarction without residual deficits
CPT/HCPCS: 36415; 36416; 70450; 70496; 70498; 71045; 72170; 73030; 73502; 80053; 80061; 80306; 80307; 81001; 82009; 82962; 83036; 83605; 83735; 83880; 84100; 84145; 84295; 84443; 84484; 85025; 85610; 86140; 87040; 87637; 92523; 92610; 93005; 94664; 96361; 96372; 96374; 96375; 96376; 97161; 97167; 99285; C8924; J1171; J1650; J2270; J2405; J2470; J3411; J7030; L3670

== ENCOUNTER → 2024-12-29 09:00 | Outpatient (BNVA) | payer MEDICARE, SELFPAY | PROVIDERS: PCP Family Medicine; Visit Provider Physician Assistant | DX: R53.1 Weakness (principal); S42.301A Unspecified fracture of shaft of humerus, right arm, initial encounter for closed fracture; W19.XXXA Unspecified fall, initial encounter | CPT/HCPCS: 73060; 99203 ==

== ENCOUNTER → 2025-01-11 10:34 | Outpatient (BNVA) | payer MEDICARE, SELFPAY | PROVIDERS: PCP Family Medicine; Visit Provider Surgery | DX: Z12.11 Encounter for screening for malignant neoplasm of colon (principal) | CPT/HCPCS: 99024; 99204 ==

== ENCOUNTER 2025-01-14 08:45 | Outpatient (CLI) | payer MEDICARE, SELFPAY ==
--- NOTE | 2025-01-14 09:00 | CT_ITS ---
WS: [id number] CT RIGHT SHOULDER, NONCONTRAST HISTORY: Follow-up fracture. Technique: All CT scans at [facility] use at least one of these dose optimization techniques: automated exposure control; mA and/or kV adjustment per patient size (includes targeted exams where dose is matched to clinical indication); or iterative reconstruction. DLP: 251.70 mGy.cm COMPARISON: Radiograph on 12/29/2024 Acute, nonhealed comminuted fracture involving the RIGHT humeral head and neck. Humeral head is dislocated posteriorly and laterally. The fracture is entrapped upon the inferior glenoid. There is slight invagination of the glenoid into the humeral fracture site. Portion of the superior humeral avulsion fracture is riding higher than the glenoid. Soft tissue edema and hemorrhage surrounding the humeral head extending into the joint space. There is minimal callus formation evident along the more distal fracture site. The glenoid is irregular. Tiny avulsion fracture is not excluded especially along the lateral glenoid. Mild AC joint arthritis. Clavicle and acromion are intact. Scapula is intact. Visualized ribs are not fractured. Paraseptal and centrilobular emphysematous changes in the visualized RIGHT lung. Atherosclerotic plaque ascending aorta. Prior CABG. CT/CT shoulder RT wo con* [id number] IMPRESSION: 1. Markedly comminuted acute RIGHT humeral head and neck fracture. 2. Partial posterolateral dislocation of the humeral head. Glenoid is invagina ting into the humeral head fracture resulting in entrapment of the humeral head which would cause difficulty reducing the dislocation. 3. Humeral head slightly high riding about the glenoid. 4. There is slight irregularity involving the surface of the glenoid. Tiny avu lsion fracture is not excluded especially along the lateral surface of the juwan oid. This is the site of greatest bony impaction.
== END 2025-01-14 08:46 | disposition home or self-care (01) ==
LOC: RAD 08:47
PROVIDERS: PCP Family Medicine; Visit Provider Physician Assistant
DX: S42.301A Unspecified fracture of shaft of humerus, right arm, initial encounter for closed fracture (principal); S42.211A Unspecified displaced fracture of surgical neck of right humerus, initial encounter for closed fracture; S43.004A Unspecified dislocation of right shoulder joint, initial encounter; S42.291A Other displaced fracture of upper end of right humerus, initial encounter for closed fracture; X58.XXXA Exposure to other specified factors, initial encounter; R93.6 Abnormal findings on diagnostic imaging of limbs; M13.811 Other specified arthritis, right shoulder; J43.2 Centrilobular emphysema; J43.8 Other emphysema; I70.0 Atherosclerosis of aorta; Z98.890 Other specified postprocedural states
CPT/HCPCS: 73200

== ENCOUNTER → 2025-01-20 09:34 | Outpatient (BNVA) | payer MEDICARE, SELFPAY | PROVIDERS: PCP Family Medicine; Visit Provider Orthopaedic Surgery | DX: S42.291A Other displaced fracture of upper end of right humerus, initial encounter for closed fracture (principal); W18.39XA Other fall on same level, initial encounter | CPT/HCPCS: 99204 ==

== ENCOUNTER → 2025-05-17 12:23 | Outpatient (BNVA) | payer OTHER, SELFPAY | PROVIDERS: PCP Family Medicine; Visit Provider Orthopaedic Surgery | DX: S42.291P Other displaced fracture of upper end of right humerus, subsequent encounter for fracture with malunion (principal); X58.XXXD Exposure to other specified factors, subsequent encounter | CPT/HCPCS: 73030; 99213 ==

== ENCOUNTER 2025-06-29 13:22 | Observation (INO) | payer OTHER, MEDICARE, SELFPAY ==
[2025-06-29] VITALS (19 sets, daily range): BP systolic 86–123; BP diastolic 40–65; PULSE 53–65; RESP 11–16; TEMP 36.3–37.1; O2SAT 92–100; BMI 20.3
--- NOTE | 2025-06-29 08:47 | ANES.PREANE2 ---
Pre-Anesthetic Assessment Height/Weight: Height 5 ft 7 in Operation Date: 06/29/25 10:25 Proposed Procedures p RIGHT Hemiarthroplasty Shoulder/Humerus(Right) - Damon Palacios MD Anesthetic Plan ASA status: 4 Anesthesia: General Other: No prior issues with anesthesia NPO since yesterday evening History of hypertension on carvedilol and lisinopril S/p aortic aneurysm repair with aortic valve replacement in 2014 Prior CVA, no residual symptoms Labs ordered today Echo performed 12/2024 showing EF of 60 to 65% Plan for GETA with peripheral nerve block Medications/Allergies Home Medications ?Medication ?Instructions ?Recorded ?Confirmed ?Last Taken ?Type aspirin 81 mg tablet,delayed 81 mg PO DAILY 01/14/22 06/28/25 03/27/22 History release (Adult Aspirin Regimen) carvedilol 25 mg tablet 25 mg PO BID 01/14/22 06/28/25 06/29/25 History clopidogrel 75 mg tablet 75 mg PO DAILY 01/14/22 06/28/25 06/24/25 History nitroglycerin 0.4 mg sublingual 0.4 mg sublingual Q5M PRN Chest 01/25/22 06/28/25 3 Years Ago History tablet (Nitrostat) Pain ~03/29/19 multivitamin 1 tab PO DAILY 03/27/22 06/28/25 03/28/22 History lisinopril 40 mg tablet 20 mg (1/2 x 40 mg) PO BID #30 tabs 12/20/24 06/28/25 06/28/25 Rx tramadol 50 mg tablet 50 mg PO Q6H PRN pain 5 days #20 12/29/24 06/28/25 Unknown Rx tabs Allergies Allergy/AdvReac Type Severity Reaction Status Date / Time [id number] Reductase Allergy Severe Unknown Verified 06/28/25 15:00 Inhibitor allopurinol Allergy ALGY-Rash Verified 06/28/25 15:00 [facility] Anesthesia Medical History (Updated 05/17/25 @ 17:46 by Damon Palacios MD) Hyperlipidemia Carotid stenosis Tobacco use disorder Aortic aneurysm Hypertension Abnormal liver function tests Heart valve disorder GERD (gastroesophageal reflux disease) Vitamin D deficiency Heart failure CAD (coronary artery disease) Gout Statin intolerance Surgical History History of bilateral hip replacements 2000, 2002 History of open heart surgery 2015 History of inguinal hernia repair LEFT 1999 Hx of CABG x 4 vessels History of hip replacement 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 History of PTCA Family History Brother CAD (coronary artery disease) unknown age of onset Sister CAD (coronary artery disease) unknown age of onset Diabetes Mother CAD (coronary artery disease) unknown age of onset Father Cancer Lung disease Family/Other Hypertension Grandmother Suicide Other Dementia Denies family history of Clotting disorder Chronic kidney disease (CKD) Anesthesia complication Bleeding disorder Stroke Social History Smoking and tobacco/nicotine status: current some day tobacco/nicotine user Alcohol intake: current Alcohol intake frequency: few times a week Alcohol type: beer Substance/Drug Use: never Lives independently: Yes Data Anesthesia 06/29/25 09:32 06/29/25 09:32 Cardiac Studies: Echocardiogram 12/19/24
--- NOTE | 2025-06-29 09:25 | W.PM.OPSUD ---
Surgery/Procedure H&P Update DATE OF PROCEDURE: June 29, 2025 DATE H&P PERFORMED: 05/17/25 H&P UPDATE INFORMATION: I have reviewed H&P completed within last 30 days, I have examined patient prior to procedure and No changes to prior documentation PREOP DIAGNOSIS: Fractured proximal right humerus PLANNED PROCEDURE: Operation Date: 06/29/25 10:25 Proposed Procedures p RIGHT Hemiarthroplasty Shoulder/Humerus(Right) - Damon Palacios MD
[2025-06-29 09:51] LABS: Hematocrit 35.2 % (37-53); Hemoglobin 11.30 g/dL (11.27-16.99); Mean Corpuscular HGB Conc 32.1 g/dL (30-55); Mean Corpuscular Hemoglobin 33.2 pg (27-33); Mean Corpuscular Volume 103.5 fl (82-101); Nucleated Red Blood Cells % 0 %; Platelet Count 68 10^3/cmm (157-399); Red Blood Count 3.40 10^6/uL (3.85-5.65); White Blood Count 4.71 10^3/uL (3.29-11.43)
[2025-06-29 10:06] LABS: Anion Gap 16.1 (5-19); Blood Urea Nitrogen 8 mg/dL (8-23); Calcium 8.7 mg/dL (8.5-10.5); Carbon Dioxide 17 mmol/L (22-29); Chloride 109 mmol/L (98-107); Creatinine Clr Calc Pharmacy 49.3271; Glucose 90 mg/dL (65-115); Osmolality Calculated 284 mOsm/kg (285-295); Potassium 4.1 mmol/L (3.5-5.1); Sodium 138 mmol/L (136-145)
[2025-06-29] MEDS: ceFAZolin 2,000 mg SDV 2000 MG IVP ×2 (10:19→17:43)
[2025-06-29] MEDS: BUPivacaine 0.5% INJ 30 mL INJECTION (12:22)
--- NOTE | 2025-06-29 12:51 | P.OP_ITS ---
Operative Report Date of procedure: June 29, 2025 Surgeon: Damon Palacios MD Procedure: Preoperative diagnosis: Proximal right humerus fracture malunion Postoperative diagnosis: Same Procedure: Hemiarthroplasty of the right shoulder. Surgeon: Damon Palacios MD Customer Sales Service Manager: DESTIN Askew assistance was necessary for positioning of the patient, assistance during the procedure, wound closure, dressing placement, transported the patient to the PACU Anesthesia: General With local anesthetic EBL: 250 cc Indications: Syed is a 65-year-old white male who had a stroke multiple months ago which caused him to fall and fractured his proximal right humerus. We are unable to do any type of surgical intervention at that time due to his stroke situation and the need for anticoagulation. He is now gone through a ppropriate amount of therapy for his stroke and is now back in with pain and loss of motion of the shoulder. There is disruption of the proximal humerus and it is captured on the backside of the glenoid. After evaluation is felt the patient would most benefit from hemiarthroplasty of the right shoulder to try and regain some function and reduce the amount of pain he has. All risk benefits treatment alternatives were discussed with him he is agreeable to this at this time. Procedure: After obtaining written consent the patient's platelet count was too low to do a scalene block and therefore he is taken to the operating room placed in upper table supine position general anesthetic administered. Once good anesthesia was achieved patient placed up in a beachchair position and secured to the table. He is padded out appropriately. Right shoulder and arm were prepped and draped usual fashion. After surgical timeout standard anterior approach to the shoulder with a longitudinal incision from just lateral to the coracoid process down to just lateral to the axillary fold. Sharp dissection taken on down to subcutaneous tissue electrocautery was having hemostasis. And blunt and sharp dissection with Metzenbaum scissors it was taken on down to the interval between the deltoid and the pectoralis major. Cephalic vein was identified and retracted superiorly laterally with the deltoid and the pectoralis muscle was retracted inferiorly and medially. Fascia around the conjoined tendon was identified divided along its lateral border. Deep self- retaining retractor placed around this and onto the lateral side to hold the deltoid all the position. Rotator cuff was found to be intact therefore at this time soft tissue were divided along the bicipital groove and dividing on up thr ough the rotator cuff interval to expose the lesser tubercle and separate this from the remainder of the fractures posteriorly. At this point using osteotomes and rongeur's fracture fragments of the proximal humerus were removed as much as possible to free up the rotator cuff and all other soft tissues in the area. Adhesions were also lysed both by digital palpation and with the use of Payne scissors. Once adequate exposure of the proximal humerus was achieved as well as exposure of the glenoid glenoid it was inspected and found to be in good repair. Biceps tendon was found to be ruptured but still adhered within the bicipital groove. At this point the arm was extended and the proximal portion of the humeral shaft was cleared of any shards of bone with a rongeur. This was then reamed up to a size 14 reamer. It was then trialed with a size 14 trial stem but this was too large and too proud therefore the trial size 12 stem was then placed and impacted and found to have good fixation. Sizing of the head and height of the humeral head was then found to the 46 x 18 was adequate. This was placed neutral position shoulder was reduced found to have good positioning and good range of motion. At this point areas washed copious amounts of sterile irrigation. Size 12 permanent humeral fracture stem was placed however not fully impacted. #5 FiberWire had been placed through 2 drill holes on either side of the bicipital groove approximately 2 cm distal to the proximal humeral shaft with the tails exterior. Also at this time #5 FiberWire was then put through the superior portion of the infraspinatus tendon and down through the wings of the fracture stem and then tag off and also similar suture was placed in the inferior portion of the infraspinatus tendon through the wings of the fracture stem and tagged again. Anteriorly #2 FiberWire was used in similar fashion the superior portion of the subscapularis and the inferior portion of subscapularis and these were also placed through the wings of the prosthesis. Prosthesis was then driven down into position. At this point using a free needle ends of the sutures were then brought up through the opposite soft tissues and tied down to each other totaling 4 different sutures repairing the rotator cuff interval back as well as the lesser tubercle and the greater tubercle to each other. #2 FiberWire was then used in [id number] fashion to repair of the further portion of the superior aspect of the rotator cuff interval. #5 FiberWire from the drill holes placed in the shaft of the humerus were then each branch was placed up through the proximal portion of the rotator cuff 1 through the subscapularis tendon and the other 1 through the infra's by Natus tendon and tied down back to themselves for vertical support. Once all this was repaired shoulders put the range of motion found to have adequate range of motion. Subsequently areas washed copiously with sterile irrigation deep retractors removed. Subcutaneous tissues reapproximated with the 0 Vicryl interrupted sutures. Skin was closed skin denise. A total of 30 cc of half percent Marcaine plain was then placed within the surgical wound for post operative pain management. Wound was then cleaned and dry dressed with Xeroform gauze and surgical on adhesive dressing. Patient placed in abduction pillow and sling and then was awakened and transferred to cover room stable condition
--- NOTE | 2025-06-29 13:14 | XR_ITS ---
WS: [id number] Right shoulder, 2 views, 06/29/2025 Clinical Data: Post-op hemiarthroplasty Comparison: Right shoulder, 05/17/2025 Findings: A shoulder prosthesis replaces the humeral head. Surgical denise overlie the operative site. XR/XR shoulder RT min 2V* [id number] Impression: Right shoulder arthroplasty.
[2025-06-29] MEDS: fentaNYL 50 mcg/mL INJ 2mL IVP (13:20)
--- NOTE | 2025-06-29 13:50 | ANE.PACU2 ---
Inpatient post-anesthesia follow up: Airway intact: Yes Vital signs: Temperature 97.6 F Pulse Rate 57 Respiratory Rate 12 Blood Pressure 96/46 Pulse Oximetry 94 Oxygen Delivery Me thod Room Air Oxygen Flow Rate 8 Fraction of Inspir ed Oxygen Hydration adequate: Yes Nausea and vomiting: No Pain level: 1 Mental status: Baseline
--- NOTE | 2025-06-29 14:01 | PC.NURSE ---
1320 - Dr Rutledge at side and aware of pts blood pressure
--- NOTE | 2025-06-29 14:01 | PC.NURSE ---
9860 Shahrzad, RN at side to accept pt into room 272 - pts bp currently 86/41 - heart rate 57 - pt asymptomatic - this nurse returned to inform Dr Rutledge of BP - Dr to assess pt in room 272
--- NOTE | 2025-06-29 14:16 | PC.NURSE ---
1407 - pt asymptomatic with RN at sided BP 85/50 map 62 - Dr Rutledge at pts side in room 272 to assess - IVF returned to pt - 1410 pt BP 96/52 map 67 - this nurse and Dr Rutledge exit care
--- NOTE | 2025-06-29 15:43 | PC.NURSE ---
pts bp 87/44, notified kvng cox np, ordered lr @ 125, she will consult hospitalist
--- NOTE | 2025-06-29 16:17 | PM.CONSULT ---
Providers/Reason For Consult Consulting Physician/Specialty*: Dr. Pettit - hospitalist Reason for Consult*: Hypotension Requesting Physician: Dr. Palacios Attending Physician: Damon Palacios MD Primary Care Provider: Eva Huber MD History of Present Illness History of Present Illness Syed Maria is a 65 year old male presenting with proximal right humerus fracture malunion requiring hemiarthroplasty of the right shoulder per orthopedics. He was somewhat hypotensive after surgery. Hospitalists consulted for medical management of hypotension. The patient states he has had relative hypotension for the past 6-8 months. He is being treating for hypertension and his antihypertensive have not been adjusted since he has shown lower pressures. He had CABG in 2015 and states she has been losing weight since that time and may have lost enough weight that he is not requiring as intensive of a anti-hypertensive regimen going forward. We can adjust his medications inpatient and have him follow up as outpatient with PCP for further BP monitoring and optimization. Review of Systems Const: Denies: fever(s), chills or body aches Eyes: Denies: change in vision ENMT: Denies: throat pain Card: Denies: chest pain or palpitations Resp: Denies: dyspnea or productive cough GI: Denies: abdominal pain, nausea or vomiting : Denies: flank pain, difficulty urinating or urinary urgency Musc: Reports: other (s/p right should arthroplasty, immobilizer in place.) Skin/Breast: Denies: rash or pruritus Neuro: Denies: headache(s), numbness in extremities or sensory changes Psych: Denies: anxiety or depression Medications/Allergies Home Medications ?Medication ?Instructions ?Recorded ?Confirmed ?Last Taken ?Type aspirin 81 mg tablet,delayed 81 mg PO DAILY 01/14/22 06/28/25 03/27/22 History release (Adult Aspirin Regimen) carvedilol 25 mg tablet 25 mg PO BID 01/14/22 06/28/25 06/29/25 History clopidogrel 75 mg tablet 75 mg PO DAILY 01/14/22 06/28/25 06/24/25 History nitroglycerin 0.4 mg sublingual 0.4 mg sublingual Q5M PRN Chest 01/25/22 06/28/25 3 Years Ago History tablet (Nitrostat) Pain ~03/29/19 multivitamin 1 tab PO DAILY 03/27/22 06/28/25 03/28/22 History lisinopril 40 mg tablet 20 mg (1/2 x 40 mg) PO BID #30 tabs 12/20/24 06/28/25 06/28/25 Rx tramadol 50 mg tablet 50 mg PO Q6H PRN pain 5 days #20 12/29/24 06/28/25 Unknown Rx tabs Allergies Allergy/AdvReac Type Severity Reaction Status Date / Time [id number]-[id number]-XbG Reductase Allergy Severe Unknown Verified 06/28/25 15:00 Inhibitor allopurinol Allergy ALGY-Rash Verified 06/28/25 15:00 Current Medications Generic Name Dose Route Start Last Admin Trade Name Freq PRN Reason Stop Dose Admin Sodium Chloride 1,000 mls @ 80 mls/hr 06/29/25 12:45 06/29/25 15:49 Sodium Chloride 0.9% IV Infused .[id number] DYLON Infusion Lactated Ringer's 1,000 mls @ 125 mls/hr 06/29/25 15:45 06/29/25 15:49 Lactated Ringers IV 125 mls/hr .Q8H DYLON Administration PFSH Acute PFSH: Medical History Hyperlipidemia Carotid stenosis Tobacco use disorder Aortic aneurysm Hypertension Abnormal liver function tests Heart valve disorder GERD (gastroesophageal reflux disease) Vitamin D deficiency Heart failure CAD (coronary artery disease) Gout Statin intolerance Surgical History History of bilateral hip replacements 2000, 2002 History of open heart surgery 2015 History of inguinal hernia repair LEFT 1998 Hx of CABG x 4 vessels History of hip replacement 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 History of PTCA Family History Brother CAD (coronary artery disease) unknown age of onset Sister CAD (coronary artery disease) unknown age of onset Diabetes Mother CAD (coronary artery disease) unknown age of onset Father Cancer Lung disease Family/Other Hypertension Grandmother Suicide Other Dementia Denies family history of Clotting disorder Chronic kidney disease (CKD) Anesthesia complication Bleeding disorder Stroke Social History Smoking and tobacco/nicotine status: current some day tobacco/nicotine user Alcohol intake: current Alcohol intake frequency: few times a week Alcohol type: beer Substance/Drug Use: never Lives independently: Yes Vitals/I&O/Wt Last Vital Signs Temp 97.4 F L 06/29/25 14:55 Pulse 54 L 06/29/25 14:55 Resp 14 06/29/25 14:55 BP 96/50 06/29/25 14:55 Pulse Ox 97 06/29/25 14:55 O2 Del Method Room Air 06/29/25 14:55 O2 Flow Rate 8 06/29/25 13:00 06/29/25 06/29/25 06/29/25 06:59 14:59 22:59 Intake Total 50 / 50 315.167 / 365.167 Output Total 250 / 250 Balance -200 / -200 315.167 / 115.167 Weight last 48 hrs Weight 58.196 kg Weight 58.967 kg Physical Exam Const: COMMON NORMALS: no acute distress, average body habitus, patient oriented x3 and healthy appearing HENMT: COMMON NORMALS: normocephalic and atraumatic HEAD & SCALP: normocephalic and atraumatic Eye: COMMON NORMALS: Equal, round and reactive pupils present and EOMs intact bilaterally PUPIL: Yes Equal, round and reactive pupils present Neck/C-Spine: COMMON NORMALS: full ROM and no lymphadenopathy Lymph: LYMPHATIC: no lymphadenopathy noted Resp: COMMON NORMALS: normal respiratory effort, No retractions and clear to auscultation bilaterally AUSCULTATION: clear to auscultation bilaterally Cardio: COMMON NORMALS: regular rate, regular rhythm, No gallops present (Cardio), No murmurs present (Cardio) and No rub (Cardio) RATE: regular rate RHYTHM: regular rhythm GI: COMMON NORMALS: Soft to palpation, non-tender and No hepatosplenomegaly present PALPATION: Yes Soft to palpation and Yes No hepatosplenomegaly present Extremity: NARRATIVE EXTREMITY EXAM: right shoulder hemiarthroplasty with immobilizer in place. Neuro: COMMON NORMALS: patient oriented x3 and CN's II-XII intact bilaterally Psych: COMMON NORMALS: negative for mental status grossly normal, negative for Normal thought process present and negative for normal affect THOUGHT PROCESS: abnormal Skin: COMMON NORMALS: negative for no rashes or lesions noted and negative for no wounds GENERAL SKIN EXAM: rashes and/or lesions noted Data 06/29/25 09:32 06/29/25 09:32 A&P Assessment and plan 1. Fracture of proximal end of right humerus: 2. Hypertension: Plan: 65 year old male presenting with proximal right humerus fracture malunion requiring hemiarthroplasty of the right shoulder per orthopedics. He was somewhat hypotensive after surgery. Hospitalists consulted for medical management of hypotension. Right shoulder hemiarthroplasty - mgmt per orhto Hypotension - h/o hypertension - he has lost weight since CABG in 2015, however has maintained on the same antihypertensive treatement. He says he has been running low for the past 6-8 months. - Cont. IV fluids, currently getting LR at 125 mls/hr - stop antihypertensives for now, on lisinopril, carvedilol as OP. - pain medications can also drop blood pressure, but will require analgesia post surgery CVD - history of stents placed prior to CABG - CABG in 2014 - he continues on ASA/plavix outpatient - PRN nitro - echo from December with normal EF, no need to repeat PPx: per surgery Diet: regular Disposition: cont. IV fluids, stop antihypertensives for now, can consider reducing or stopping on D/C. - Follow up with PCP outpatient for ongoing HTN monitoring and medication optimization. PDMP PDMP Reviewed: Not Reviewed Consult Attestations Medical Necessity Statement: Anticipate ongoing inpatient care for hemiarthroplasty, hypotension. Time Spent in Patient Care: 16 - 35 minutes (>than 50% of time spent in counselling and/or direct pt care on unit). Coding Level of Care Code Acute Code for Chg Fwd Diagnoses Fracture of proximal end of right humerus S42.201A Hypertension I10
[2025-06-29] MEDS: oxyCODONE-APAP 5-325 mg Tablet PO ×2 (17:45→21:24)
[2025-06-29] MEDS: ondansetron 2 mg/ML SDV 2 mL 4 MG IVP (21:24)
[2025-06-30] MEDS: ceFAZolin 2,000 mg SDV 2000 MG IVP (02:47)
[2025-06-30 06:09] LABS: Hematocrit 27.1 % (37-53); Hemoglobin 8.10 g/dL (11.27-16.99); Mean Corpuscular HGB Conc 29.9 g/dL (30-55); Mean Corpuscular Hemoglobin 32.5 pg (27-33); Mean Corpuscular Volume 108.8 fl (82-101); Nucleated Red Blood Cells % 0 %; Platelet Count 50 10^3/cmm (157-399); Red Blood Count 2.49 10^6/uL (3.85-5.65); White Blood Count 6.81 10^3/uL (3.29-11.43)
[2025-06-30 06:25] LABS: Anion Gap 15.7 (5-19); Blood Urea Nitrogen 13 mg/dL (8-23); Calcium 7.8 mg/dL (8.5-10.5); Carbon Dioxide 16 mmol/L (22-29); Chloride 104 mmol/L (98-107); Creatinine Clr Calc Pharmacy 49.7517; Glucose 131 mg/dL (65-115); Osmolality Calculated 274 mOsm/kg (285-295); Potassium 4.7 mmol/L (3.5-5.1); Sodium 131 mmol/L (136-145)
[2025-06-30 07:55] VITALS: BP 103/55; PULSE 62; RESP 16; TEMP 36.4; O2SAT 99
[2025-06-30] MEDS: multivitamin therapeutic Tablet 1 TAB PO (08:08)
[2025-06-30 09:46] VITALS: RESP 18
[2025-06-30] MEDS: oxyCODONE-APAP 5-325 mg Tablet PO (09:46)
--- NOTE | 2025-06-30 10:15 | PC.CHAP ---
Pastoral Care Encounter/Spiritual Assessment Type of Contact [] Declined engineering faculty member visit [] Patient/Family/Request visit [] Outpatient visit [] Follow-up visit [] Physician referral [] Code/Alert [x] Routine visit [] Staff referral [] Actively dying [] Patient sleeping [] Family support [] [] Out of room [] Palliative care [] [] Receiving care in room [] Pre-surgical visit [] Trauma [] Long length of stay [] ICU visit [] Other: Relational/Emotional Strength [x] Patient feels connected with others/family/visitors/staff [] Distress [] Loneliness/isolation [] Abandonment Spirituality of Patient [x] Person of Julita [] Attends Voodoo of their Julita [x] Believes in Prayer [] Reads Bible or Methodist materials [] There are Spiritual issues to be addressed Surveillance Technician Interventions [x] Prayer [x] Active listening [x] Non-anxious presence [x] Spiritual/emotional support [] Crisis/trauma care [] Spiritual counseling [] Bereavement support [] Provided bereavement packet [] Provided Bible/devotional materials [] Provided toy/stuffed animal, coloring book to patient or family member [] Provided Communion [] Anointing/[place] [] Salvation [x] Completed spiritual assessment [] Other: Impact on Illness or Injury [] Angry [] Fearful [] Anxious [] Often cries [] Exhaustion [] Unable to work [] Unable to attend muslim [] Unable to walk/stand [] Unable to read [] Unable to drive [] Unable to eat/drink [] Unable to sleep [] Unable to be with family [] Patient intubated [] Other: Summary Time spent with patient 5 min
[2025-06-30 11:54] VITALS: BP 119/57; PULSE 60; RESP 18; TEMP 36.3; O2SAT 99
--- NOTE | 2025-06-30 13:17 | P.PN_ITS ---
Subjective 2 Subjective: BP remains controlled without anti-hypertensives currently. Vitals/I&O/Wt Last Vital Signs Temp 97.4 F L 06/30/25 11:54 Pulse 60 06/30/25 11:54 Resp 18 06/30/25 11:54 BP 119/57 06/30/25 11:54 Pulse Ox 99 06/30/25 11:54 O2 Del Method Room Air 06/30/25 11:54 O2 Flow Rate 8 06/29/25 13:00 06/29/25 06/30/25 06/30/25 22:59 06:59 14:59 Intake Total 555.167 / 977.753 0498 / 1886.240 9336 / 1840 Output Total 100 / 350 300 / 300 Balance 555.167 / 355.167 900 / 7355.709 9336 / 1540 Weight last 48 hrs Weight 60.328 kg Weight 58.196 kg Weight 58.967 kg Physical Exam 2 Const: COMMON NORMALS: no acute distress, average body habitus, patient oriented x3 and healthy appearing HENMT: COMMON NORMALS: normocephalic and atraumatic HEAD & SCALP: n ormocephalic and atraumatic Eye: COMMON NORMALS: Equal, round and reactive pupils present and EOMs intact bilaterally PUPIL: Yes Equal, round and reactive pupils present Neck/C-Spine: COMMON NORMALS: full ROM and no lymphadenopathy Lymph: LYMPHATIC: no lymphadenopathy noted Resp: COMMON NORMALS: normal respiratory effort, No retractions and clear to auscultation bilaterally AUSCULTATION: clear to auscultation bilaterally Cardio: COMMON NORMALS: regular rate, regular rhythm, No gallops present (Cardio), No murmurs present (Cardio) and No rub (Cardio) RATE: regular rate RHYTHM: regular rhythm GI: COMMON NORMALS: Soft to palpation, non-tender and No hepatosplenomegaly present PALPATION: Yes Soft to palpation and Yes No hepatosplenomegaly present Extremity: NARRATIVE EXTREMITY EXAM: right shoulder hemiarthroplasty with immobilizer in place. Neuro: COMMON NORMALS: patient oriented x3 and CN's II-XII intact bilaterally Psych: COMMON NORMALS: negative for mental status grossly normal, negative for Normal thought process present and negative for normal affect THOUGHT PROCESS: abnormal Skin: COMMON NORMALS: negative for no rashes or lesions noted and negative for no wounds GENERAL SKIN EXAM: rashes and/or lesions noted Data 08/14/25 05:51 06/30/25 05:51 A&P Assessment and plan 1. Fracture of proximal end of right humerus: 2. Hypertension: Plan: 65 year old male presenting with proximal right humerus fracture malunion requiring hemiarthroplasty of the right shoulder per orthopedics. He was somewhat hypotensive after surgery. Hospitalists consulted for medical management of hypotension. Right shoulder hemiarthroplasty - mgmt per orhto Hypotension - h/o hypertension - he has lost weight since CABG in 2014, however has maintained on the same antihypertensive treatment. He says he has been running low for the past 6-8 months. - Cont. IV fluids, currently getting LR at 125 mls/hr - stop antihypertensives for now, on lisinopril, carvedilol as OP. - pain medications can also drop blood pressure, but will require analgesia post surgery - continue off anti-hypertensives after discharge and follow up with PCP in 1-2 weeks for BP check and further medication optimization. If blood pressure remains in good range off anti-hypertensives, then he may do well off these medications. CVD - history of stents placed prior to CABG - CABG in 2014 - he continues on ASA/plavix outpatient - PRN nitro - echo from December with normal EF, no need to repeat PPx: per surgery Diet: regular Disposition: -stop antihypertensives at discharge. - Follow up with PCP outpatient for ongoing HTN monitoring and medication optimization. PDMP PDMP Reviewed: Not Reviewed Attestations 2 Medical Necessity Statement*: ongoing inpatient after shoulder surgery per ortho recommendations. Time Spent in Patient Care: 16 - 35 minutes (>than 50% of time sp ent in counselling and/or direct pt care on unit) . Coding Level of Care Code Acute Code for g Fwd Diagnoses Fracture of proximal end of right humerus S42.201A Hypertension I10
--- NOTE | 2025-06-30 14:49 | PM.DCS ---
Discharge Providers Date of Admission: 06/29/25 13:22 Date of Discharge: June 30, 2025 Attending Provider at Admission: Damon Palacios MD Attending Provider at Discharge: Damon Palacios MD Consults: Dr. Scott, hospitalist Primary Care Provider: Eva Huber MD Diagnoses at Discharge Discharge Diagnosis 1. Other closed displaced fracture of proximal end of right humerus, initial encounter: 2. 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 Hospital Course Hospital Course Patient was admitted on 06/29/2025 and underwent the above-stated procedure. He tolerated this well however the first postoperative evening began having the low blood pressures. Patient was on antihypertensives and these were held as well as IV fluids changed. Hospitalist consult was obtained. They recommended holding the patient's antihypertensive meds at this time. They should follow-up with her primary care as soon as possible after discharge to reevaluate the need for these. Once blood pressure was under control pain control was easily met and now patient is on oral pain medication with good comfort. Physical Exam Narrative: On exam this afternoon he is up and sitting up in bed. Wound is covered with dressings but clear. He is neurovascular intact right upper extremity. No other gross abnormalities. Discharge Data Studies Completed and Pending Completed Studies During Hospitalization Category Date Time Status XR shoulder RT min 2V* [id number] Routine Exams 06/29/25 13:14 Completed Pending at discharge Category Date Time Status BMP [Basic Metabolic Panel] AM LABS Lab 07/01/25 04:00 Ordered CBC Auto Diff [Complete Blood Count w/Auto] AM LABS Lab 07/01/25 04:00 Ordered Radiology Impressions Shoulder X-Ray 06/29/25 13:14 Impression: Right shoulder arthroplasty. Laboratory Results WBC 6.81 10^3/uL (3.29-11.43) 06/30/25 05:51 RBC 2.49 10^6/uL (3.85-5.65) L 06/30/25 05:51 Hgb 8.10 g/dL (11.27-16.99) L 06/30/25 05:51 Hct 27.1 % (37-53) L 06/30/25 05:51 MCV 108.8 fl (82-101) H D 06/30/25 05:51 MCH 32.5 pg (27-33) 06/30/25 05:51 MCHC 29.9 g/dL (30-55) L D 06/30/25 05:51 RDW 15.5 % (12.1-15.1) H 06/30/25 05:51 Plt Count 50 10^3/cmm (157-399) L 06/30/25 05:51 MPV 11.5 fL (7.4-10.4) H 06/30/25 05:51 Neut % (Auto) 84.3 % 06/30/25 05:51 Lymph % (Auto) 9.4 % 06/30/25 05:51 [place] % (Auto) 5.6 % 06/30/25 05:51 Eos % (Auto) 0.0 % 06/30/25 05:51 Baso % (Auto) 0.0 % 06/30/25 05:51 Neut # (Auto) 5.74 10^3/uL (1.8-7.7) 06/30/25 05:51 Lymph # (Auto) 0.6 10^3/uL (0.8-4.8) L 06/30/25 05:51 [place] # (Auto) 0.4 10^3/uL (0.2-0.9) 06/30/25 05:51 Eos # (Auto) 0.0 10^3/uL (0.0-0.8) 06/30/25 05:51 Baso # (Auto) 0.0 10^3/uL (0.0-0.1) 06/30/25 05:51 Nucleated RBC % (auto) 0 % 06/30/25 05:51 Nucleated RBCs # 0.0 /100WBC 06/30/25 05:51 Sodium 131 mmol/L (136-145) L 06/30/25 05:51 Potassium 4.7 mmol/L (3.5-5.1) 06/30/25 05:51 Chloride 104 mmol/L (98-107) 06/30/25 05:51 Carbon Dioxide 16 mmol/L (22-29) L 06/30/25 05:51 Anion Gap 15.7 (5-19) 06/30/25 05:51 BUN 13 mg/dL (8-23) 06/30/25 05:51 Creatinine 1.3 mg/dL (0.7-1.2) H 06/30/25 05:51 GFR Calculation 55.1 mL/min (90-130) L 06/30/25 05:51 Glucose 131 mg/dL (65-115) H 06/30/25 05:51 Calculated Osmolality 274 mOsm/kg (285-295) L 06/30/25 05:51 Calcium 7.8 mg/dL (8.5-10.5) L 06/30/25 05:51 Procedures Performed Right shoulder hemiarthroplasty Vitals Last Vital Signs Temp 97.4 F L 06/30/25 11:54 Pulse 60 06/30/25 11:54 Resp 18 06/30/25 11:54 BP 119/57 06/30/25 11:54 Pulse Ox 99 06/30/25 11:54 O2 Del Method Room Air 06/30/25 11:54 O2 Flow Rate 8 06/29/25 13:00 Discharge Plan Discharge Patient Disposition: Home Condition: Stable Prescriptions: New oxycodone-acetaminophen 5-325 mg tablet 1 tab PO Q6H PRN (Reason: pain) Qty: 30 0RF Continued clopidogrel 75 mg tablet 75 mg PO DAILY aspirin [Adult Aspirin Regimen] 81 mg tablet,delayed release (DR/EC) 81 mg PO DAILY nitroglycerin [Nitrostat] 0.4 mg tablet, sublingual 0.4 mg sublingual Q5M PRN (Reason: Chest Pain) Rx Instructions: do not exceed 3 doses per episode tramadol 50 mg tablet 50 mg PO Q6H PRN (Reason: pain) 5 Days Qty: 20 0RF multivitamin Tablet 1 tab PO DAILY Discontinued carvedilol 25 mg tablet 25 mg PO BID Rx Instructions: must administer with a meal/food lisinopril 40 mg tablet 20 mg PO BID Qty: 30 0RF Laboratory Chemical Assistant OK for DC: Hospitalist Discharge Order = DC NOW: Discharge Order (Routine); Ordered 06/30/25 Ordered By: Damon Palacios Referrals: Eva Huber MD [Primary Care Provider, Family Practice] - 4-7 days Damon Palacios MD [Physician, Orthopedics] - 07/12/25 10:15 am Discharge Diet: Advance as tolerated Discharge Activity: Increase activity as tolerated and Limit activity as instructed Patient Instructions: Oxycodone/Acetaminophen (By mouth), Acute Wound Care (DC), Shoulder Arthroplasty (GEN), Opioid Safety, Post Anesthesia Care, Patient Portal & Dejan Instructions Activity Restrictions/Additional Instructions: Abduction pillow and arm sling at all times. May change dressing in 3 to 4 days May shower in 3 to 4 days allow wound to get wet Recover wound with dry gauze and tape Call with any concerns Sleep with head of bed elevated 45 degrees or in a recliner Ice and elevate right shoulder as needed. Discharge Attestations Time Spent in Discharge Care*: less than 30 min Quality Metrics Clinical Quality Measures [ No reported AMI, CVA or VTE this stay] Coding Level of Care Code Critical Care >/= 30 minutes Diagnoses Other closed displaced fracture of proximal end of right humerus, initial encounter S42.291A Encounter type: initial encounter Fracture type: closed Fracture morphology: other fracture Fracture alignment: displaced Hypertension, unspecified type I10 Hypertension type: unspecified
== END 2025-06-30 13:25 | disposition home or self-care (01) ==
LOC: MEDSURG 13:22
PROVIDERS: Student in an Organized Health Care Education/Training Program; Admitting Provider Orthopaedic Surgery; PCP Family Medicine; Visit Provider Orthopaedic Surgery
PROC: (CPT 23470; principal; 2025-06-29 10:25)
DX: S42.201P Unspecified fracture of upper end of right humerus, subsequent encounter for fracture with malunion (principal); W19.XXXD Unspecified fall, subsequent encounter; I25.10 Atherosclerotic heart disease of native coronary artery without angina pectoris; Z95.5 Presence of coronary angioplasty implant and graft; Z95.1 Presence of aortocoronary bypass graft; K21.9 Gastro-esophageal reflux disease without esophagitis; I11.0 Hypertensive heart disease with heart failure; I50.9 Heart failure, unspecified; E78.5 Hyperlipidemia, unspecified; F17.200 Nicotine dependence, unspecified, uncomplicated; I95.9 Hypotension, unspecified
CPT/HCPCS: 23470; 36415; 73030; 80048; 85025; 97165; C1776; G0378; J0690; J1100; J1171; J2405; J2704; J3010; J3490; J7030; J7120; J9999

== ENCOUNTER → 2025-07-12 10:13 | Outpatient (BNVA) | payer OTHER, SELFPAY | PROVIDERS: PCP Family Medicine; Visit Provider Orthopaedic Surgery | DX: M25.511 Pain in right shoulder (principal); Z96.611 Presence of right artificial shoulder joint | CPT/HCPCS: 73030; 99024 ==

== ENCOUNTER → 2025-07-26 10:49 | Outpatient (BNVA) | payer OTHER, SELFPAY | PROVIDERS: PCP Family Medicine; Visit Provider Orthopaedic Surgery | DX: Z96.611 Presence of right artificial shoulder joint (principal) | CPT/HCPCS: 73030; 99024 ==

== ENCOUNTER 2025-08-08 13:20 | Outpatient (RCR) | payer OTHER, SELFPAY | END 2025-08-16 23:59 | disposition home or self-care (01) | LOC: SPT 13:20 | PROVIDERS: Visit Provider Orthopaedic Surgery | DX: Z47.1 Aftercare following joint replacement surgery (principal); Z96.611 Presence of right artificial shoulder joint | CPT/HCPCS: 97110; 97140; 97161; 97530 ==

== ENCOUNTER 2025-08-17 05:00 | Outpatient (RCR) | payer OTHER, SELFPAY | END 2025-09-16 23:59 | disposition home or self-care (01) | LOC: SPT 05:00 | PROVIDERS: Visit Provider Orthopaedic Surgery | DX: Z98.890 Other specified postprocedural states (principal) | CPT/HCPCS: 97110; 97140; 97530 ==

== ENCOUNTER → 2025-08-29 10:04 | Outpatient (BNVA) | payer OTHER, SELFPAY | PROVIDERS: PCP Family Medicine; Visit Provider Orthopaedic Surgery | DX: Z96.611 Presence of right artificial shoulder joint (principal) | CPT/HCPCS: 73030; 99024 ==

== ENCOUNTER 2025-09-17 05:00 | Outpatient (RCR) | payer OTHER, SELFPAY | END 2025-10-16 23:59 | disposition home or self-care (01) | LOC: SPT 05:00 | PROVIDERS: PCP Family Medicine; Visit Provider Orthopaedic Surgery | DX: Z98.890 Other specified postprocedural states (principal) | CPT/HCPCS: 97110; 97140; 97164; 97530 ==

== ENCOUNTER → 2025-10-03 09:36 | Outpatient (BNVA) | payer OTHER, SELFPAY | PROVIDERS: PCP Family Medicine; Visit Provider Orthopaedic Surgery | DX: Z96.611 Presence of right artificial shoulder joint (principal) | CPT/HCPCS: 99024 ==

== ENCOUNTER 2025-10-17 05:00 | Outpatient (RCR) | payer OTHER, SELFPAY | END 2025-11-16 23:59 | disposition home or self-care (01) | LOC: SPT 05:00 | PROVIDERS: PCP Family Medicine; Visit Provider Orthopaedic Surgery | DX: Z47.1 Aftercare following joint replacement surgery (principal); Z96.611 Presence of right artificial shoulder joint | CPT/HCPCS: 97110 ==